=== PATIENT | female | born 1940 | race Caucasian/White ===

== ENCOUNTER 2018-04-04 10:15 | Inpatient (IN) | payer OTHER, MEDICARE ==
[~2018-04-04] VITALS: Ht 152.4 cm; Wt 70.0 kg
[~2018-04-04 10:15] MED LIST: ADVIN25050 INH; ALBUAER2 INH; ATV5 PO; CZR50 PO; EZET10TA41 PO; HYDC25 PO; METO100T44 PO; PRM625 PO; [UNRECOGNIZED DRUG - OTHER]
[2018-04-04] MEDS ORDERED: SODIUM CHLORIDE 0.9% 500ML 500 ML IV STA (10:46)
[2018-04-04] MEDS ORDERED: KETOROLAC TROMETHAMINE 30 MG/ML VIAL IV STA (10:46)
[2018-04-04] MEDS ORDERED: MoRPHine SULFATE 4 MG/ML 1 ML CARP\\VIAL IV STA (10:46)
[2018-04-04] MEDS ORDERED: AMT10 PO (11:20)
[2018-04-04] MEDS ORDERED: LOSA1TAB38 PO (11:20)
[2018-04-04] MEDS ORDERED: METO-479 PO (11:20)
[2018-04-04] MEDS ORDERED: ATOR10TA82 PO (11:20)
[2018-04-04] MEDS ORDERED: HYDR25TA4 PO (11:20)
[2018-04-04] MEDS ORDERED: ADVIN25/60 INH (11:20)
[2018-04-04] MEDS ORDERED: LORA-741 PO (11:20)
[2018-04-04] MEDS ORDERED: VNTHFA/IN INH (11:20)
[2018-04-04 11:28] LABS: BASO % 0.5 %; BASO ABS # 0.04 K/uL (0-0.2); EOS ABS # 0.47 K/uL (0-0.5); HEMATOCRIT 35.3 % (37-47); HEMOGLOBIN 11.8 g/dL (12.0-16.0); IG# 0.02 K/uL (0.00-0.02); LYMPH % 29.1 %; LYMPH ABS # 2.29 K/uL (1.2-3.4); MEAN CELL VOLUME 93.9 fL (80-100); MEAN CORPUSCULAR HEMOGLOBIN 31.4 pg (25-34); MEAN CORPUSCULAR HGB CONC 33.4 g/dl (32-36); MEAN PLATELET VOLUME 9.3 fL (7.4-10.4); MONO % 12.1 %; MONO ABS # 0.95 K/uL (0.11-0.59); PLATELET COUNT 248 K/uL (130-400); RED CELL DISTRIBUTION WIDTH SD 48.1 fL (36.4-46.3); WHITE BLOOD COUNT 7.87 K/uL (4.8-10.8)
[2018-04-04 11:44] LABS: CALCIUM 9.7 mg/dl (8.5-10.1); CREATININE 1.09 mg/dl (0.60-1.20); POTASSIUM 3.6 mmol/L (3.5-5.1)
--- NOTE | 2018-04-04 11:46 | DIAGNOSTIC IMAGING REPORT ---
CT LUMBAR SPINE WITHOUT CT DOSE: 579.17 mGycm CLINICAL HISTORY: Severe low back pain TECHNIQUE: Helical images were acquired in transverse plane. Reformatted sagittal and coronal images were reviewed. A dose lowering technique was utilized adhering to the principles of ALARA. CONTRAST: No contrast was administered COMPARISON STUDY: Intraoperative fluoroscopic spot images performed August 2008 FINDINGS: At the inferior T12 level, there are large partially calcified anterior extradural masses measuring 11 mm on the right and 21 mm on the left. The left mass extends into the neural foramen. There is significant secondary spinal stenosis. Diagnostic considerations include partially calcified extruded disc herniations versus calcified meningiomas or neurogenic tumors. An MRI without and with contrast is recommended in follow-up. L1-2 level: There is a 1-2 fusion. No significant disc is visualized. There is no herniation. There is no spinal or foraminal stenosis. L2-3 level: There is L2-3 fusion with no significant disc. There is no significant spinal or foraminal stenosis. L3-4 level: There are marked degenerative changes. There is moderate spinal stenosis. There is facet joint fragmentation. There is bilateral foraminal narrowing. L4-5 level: There is marked disc degeneration. There is moderate spinal stenosis. There is facet joint fragmentation. There is bilateral foraminal narrowing. L5-S1 level: There are postsurgical changes of a discectomy and interbody fusion. Postlaminectomy changes. There is no significant spinal or foraminal stenosis. There is a suspected prior left nephrectomy. IMPRESSION: 1. 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 There is extension into the left neural foramina. There is significant secondary spinal stenosis. Diagnostic considerations include partially calcified extruded disc herniations versus calcified meningiomas or neurogenic tumors. An MRI without and with contrast is recommended in follow-up. 2. Moderate spinal stenosis and bilateral foraminal narrowing at the L3-4, and L4-5 levels. 3. Postsurgical changes at the L5-S1 level with posterior spinal fusion and pedicle screw fixation Electronically signed by: Kervin Deshpande M.D. 04/04/2018 11:45 AM Dictated Date/Time: 04/04/2018 11:36 AM
[2018-04-04 12:50] VITALS: O2SAT 98; Ht 152.4 cm; Wt 70.0 kg
[2018-04-04] MEDS ORDERED: GADAVIST IV PRN (13:45)
--- NOTE | 2018-04-04 14:09 | History and Physical ---
History & Physical Date & Time of Service: Apr 04, 2018 at 14:09 Chief Complaint: Back Pain Primary Care Physician: Atif Molina D.O. History of Present Illness Source: patient 77 y/o F c/o back pain. Pt states she fell in December when she had PNA. Since that time, she has had worsening LBP. She was initially only somewhat limited, however this has progressed to pain with all mobility and with lying or sitting. Pt had prior hx of LBP and is s/p lumbar fusion in 2007. Since her recovery from surgery, she had not had much pain until after this fall. Pain is now radiating to front of her thighs b/l. She saw her PCP and was given flexaril which did help some but did not fully relieve the pain. No loss of bowel/bladder continence. She has had a good appetite and no issues with PO. "I' m eating too much!". Pt is limited in mobility due to back pain, but states no SOB or chest pain issues with stairs or other ambulation at baseline. Pt denies fever, SOB, chest pain, abd pain, n/v/c/d, LE swelling. Past Medical/Surgical History HTN Anxiety Asthmatic bronchitis Hyperlipidemia Family History Family history was reviewed; no changes noted. Mother: [place] Father: Metastatic esophageal cancer Social History Smoking Status: Former Smoker (quit at least 20 yrs ago) Alcohol Use: none Drug Use: none Immunizations History of Influenza Vaccine: Yes Influenza Vaccine Date: Jul 23, 2008 History of Tetanus Vaccine?: Yes Tetanus Immunization Date: May 23, 2005 History of Pneumococcal: Yes Pneumococcal Date: Sep 22, 2003 History of Hepatitis B Vaccine: No Allergies Coded Allergies: Codeine (Verified Allergy, Mild, RASH, 04/04/18) Penicillins (Verified Allergy, Mild, RASH, 04/04/18) Sulfa Antibiotics (Verified Allergy, Unknown, RASH, 04/04/18) Home Medications Scheduled Amitriptyline HCl (Amitriptyline HCl), 10 MG PO HS Atorvastatin (Lipitor), 10 MG PO DAILY Fluticasone Prop/Salmeterol (Advair Diskus 250/50 60 Dose), 1 PUFF INH BID Hydrochlorothiazide (Hctz), 25 MG PO DAILY Lorazepam (Ativan), 0.5 MG PO TID Losartan Potassium (Cozaar), 100 MG PO DAILY Metoprolol Succinate (Toprol Xl), 100 MG PO DAILY Scheduled PRN Albuterol Hfa (Ventolin Hfa), 2 PUFFS INH Q4H PRN for SOB/Wheezing Review of Systems Pertinent positives and negatives reviewed in HPI--all others negative Physical Exam Vital Signs Date Time Temp Pulse Resp B/P (MAP) Pulse Ox O2 Delivery O2 Flow Rate FiO2 04/04/18 14:02 88 18 167/77 98 Room Air 04/04/18 13:00 88 18 176/78 98 Room Air 04/04/18 12:50 98 Room Air 04/04/18 10:31 36.6 83 18 147/71 98 Room Air General Appearance: WD/WN, no apparent distress Head: normocephalic, atraumatic Eyes: normal inspection, sclerae normal Respiratory/Chest: normal breath sounds, no respiratory distress Cardiovascular: regular rate, rhythm, no edema Abdomen/GI: non tender, soft Extremities/Musculoskelatal: no calf tenderness, no pedal edema Neurologic/Psych: alert, normal mood/affect, oriented x 3 Skin: normal color, warm/dry Diagnostics Laboratory Results Results Past 24 Hours Test 04/04/18 10:45 Range/Units White Blood Count 7.87 4.8-10.8 K/uL Red Blood Count 3.76 4.2-5.4 M/uL Hemoglobin 11.8 12.0-16.0 g/dL Hematocrit 35.3 37-47 % Mean Corpuscular Volume 93.9 80-100 fL Mean Corpuscular Hemoglobin 31.4 25-34 pg Mean Corpuscular Hemoglobin Concent 33.4 32-36 g/dl Platelet Count 248 130-400 K/uL Mean Platelet Volume 9.3 7.4-10.4 fL Neutrophils (%) (Auto) 52.0 % Lymphocytes (%) (Auto) 29.1 % Monocytes (%) (Auto) 12.1 % Eosinophils (%) (Auto) 6.0 % Basophils (%) (Auto) 0.5 % Neutrophils # (Auto) 4.10 1.4-6.5 K/uL Lymphocytes # (Auto) 2.29 1.2-3.4 K/uL Monocytes # (Auto) 0.95 0.11-0.59 K/uL Eosinophils # (Auto) 0.47 0-0.5 K/uL Basophils # (Auto) 0.04 0-0.2 K/uL RDW Standard Deviation 48.1 36.4-46.3 fL RDW Coefficient of Variation 14.0 11.5-14.5 % Immature Granulocyte % (Auto) 0.3 % Immature Granulocyte # (Auto) 0.02 0.00-0.02 K/uL Sodium Level 135 136-145 mmol/L Potassium Level 3.6 3.5-5.1 mmol/L Chloride Level 98 98-107 mmol/L Carbon Dioxide Level 31 21-32 mmol/L Anion Gap 6.0 3-11 mmol/L Blood Urea Nitrogen 23 7-18 mg/dl Creatinine 1.09 0.60-1.20 mg/dl Est Creatinine Clear Calc Drug Dose 36.5 ml/min Estimated GFR () 55.9 Estimated GFR (Non- 48.2 BUN/Creatinine Ratio 21.4 10-20 Random Glucose 88 70-99 mg/dl Calcium Level 9.7 8.5-10.1 mg/dl Diagnostic Radiology CT L-spine: 1. 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 There is extension into the left neural foramina. There is significant secondary spinal stenosis. Diagnostic considerations include partially calcified extruded disc herniations versus calcified meningiomas or neurogenic tumors. An MRI without and with contrast is recommended in follow-up. 2. Moderate spinal stenosis and bilateral foraminal narrowing at the L3-4, and L4-5 levels. 3. Postsurgical changes at the L5-S1 level with posterior spinal fusion and pedicle screw fixation MRI L-spine: 1. Large calcified lobular extramedullary extradural mass of the anterior epidural space posterior to T12 vertebral body and T12-L1 disc space redemonstrated without appreciable enhancement extending extending into the left neuroforamen measuring up to 2.4 cm. This lesion causes severe central canal, severe left lateral recess and severe bilateral foraminal narrowing. Again, differential considerations would include calcified meningioma or calcified disc fragment with calcified nerve sheath tumor thought to be less likely. 2. Discectomy with laminectomy and posterior interbody edward and screw fusion at L5-S1. Alignment is satisfactory. 3. Advanced multilevel intervertebral disc space narrowing with disc bulging and facet arthropathy as detailed above. Impression Assessment and Plan 77 y/o F who was admitted on 04/04 with back pain Back pain: Calcified mass noted at T12 on CT and MRI Ortho c/s pending EKG pending HTN: stable, continue home meds Anxiety: stable, continue home meds Notes ativan use in 1-2x/day PRN Hyperlipidemia: continue home meds Asthmatic bronchitis: continue home meds Other: Full code without compressions. Pt states she is fine with defib or intubation if needed. Does not want prolonged mechanical life support. Sister is present and agrees Reg diet SCDs for DVT proph given likely OR Advanced Directives Existing Living Will: Yes Existing Power of Nut Blanker Operator: Yes Resuscitation Status VTE Prophylaxis Will order VTE Prophylaxis: Yes
--- NOTE | 2018-04-04 14:14 | DIAGNOSTIC IMAGING REPORT ---
LUMBAR SPINE COMBINATION CLINICAL HISTORY: 77 years-old Female with mass seen on CT . Acute severe low back pain COMPARISON: Calcified mass of the anterolateral space at T12 noted on CT study of same day. TECHNIQUE: Multiplanar, multi sequence MRI of the lumbar spine was performed both with and without the use of 7 mL Gadavist FINDINGS: The home visitor home base head start localizer images demonstrate no gross abnormality. Motion degraded exam. Postoperative changes from discectomy with laminectomy and posterior interbody edward and screw fusion at L5-S1. Severe multilevel intervertebral disc space narrowing with spondylitic spurring and facet arthrosis. Heterogeneous appearance of the bone marrow. Modic type II endplate degenerative changes at L2-L3. Modic type III endplate changes at T12-L1. Nonspecific subcutaneous edema about the posterior paraspinal tissues. No aortic aneurysm. No pathologically enlarged lymph nodes identified. Multilevel intervertebral disc space narrowing with annular disc bulging and facet arthropathy about the lower thoracic spine. Mild central canal stenosis at T10-T11 with mild right foraminal narrowing. T12-L1: Severe intervertebral disc space narrowing with spondylitic spurring and circumferential annular disc bulge. Mass of the anterior lateral space posterior to the T12 vertebral body and T12-L1 disc space demonstrates markedly decreased T2 signal with decreased T1 signal and is circumscribed and lobular in morphology measuring 1.3 x 2.0 x 2.4 cm in AP, transverse and cranial caudal dimension extending into the left neuroforamen causing neuroforaminal remodeling/widening. No appreciable enhancement on the postcontrast images. Central canal is narrowed to 5 mm in AP dimension resulting in severe central canal, severe left lateral recess and severe left foraminal narrowing. Moderate right foraminal narrowing. L1-L2: Severe intervertebral disc space narrowing with spondylitic spurring and circumferential annular disc bulge with ligamentum flavum thickening and moderate facet arthrosis. Flattening of the ventral thecal sac without significant central canal stenosis. There is mild left foraminal narrowing. The right foramen is patent. L2-L3: Severe intervertebral disc space narrowing with spondylitic spurring and circumferential annular disc bulge with advanced facet arthrosis and ligamentum flavum thickening. Flattening of the ventral thecal sac without significant foraminal stenosis. Mild right and mild to moderate left foraminal narrowing. L3-L4: Severe intervertebral disc space narrowing with millimeters retrolisthesis L3 on L4. Circumferential annular disc bulge with spondylitic spurring and advanced facet arthrosis. These findings cause moderate central canal and severe bilateral foraminal stenosis. L4-L5: Severe decubitus space narrowing with circumferential disc osteophyte complex and advanced facet arthropathy. There is moderate central canal, and severe bilateral foraminal stenosis. L5-S1: Fusion at this level. No central canal or foraminal narrowing. IMPRESSION: 1. Large calcified lobular extramedullary extradural mass of the anterior epidural space posterior to T12 vertebral body and T12-L1 disc space redemonstrated without appreciable enhancement extending extending into the left neuroforamen measuring up to 2.4 cm. This lesion causes severe central canal, severe left lateral recess and severe bilateral foraminal narrowing. Again, differential considerations would include calcified meningioma or calcified disc fragment with calcified nerve sheath tumor thought to be less likely. 2. Discectomy with laminectomy and posterior interbody edward and screw fusion at L5-S1. Alignment is satisfactory. 3. Advanced multilevel intervertebral disc space narrowing with disc bulging and facet arthropathy as detailed above. The above report was generated using voice recognition software. It may contain grammatical, syntax or spelling errors. Electronically signed by: Nikhil Chacon M.D. 04/04/2018 2:13 PM Dictated Date/Time: 04/04/2018 1:57 PM
[2018-04-04] MEDS ORDERED: ALBUTEROL HFA 8 GM INHALER INH PRN (14:30)
[2018-04-04] MEDS ORDERED: ACETAMINOPHEN 325 MG TAB PO PRN (14:30)
[2018-04-04] MEDS ORDERED: ONDANSETRON INJ 2 MG/ML 2 ML VIAL IV PRN (14:30)
[2018-04-04] MEDS ORDERED: MAGNESIUM HYDROXIDE SUSP 30 ML UDC PO PRN (14:30)
--- NOTE | 2018-04-04 16:11 | EMERGENCY ROOM VISIT NOTE ---
History Report prepared by Jhonathan: Naomie Martino Under the Supervision of: Dr. Nazario Mak D.O. First contact with patient: 10:40 Chief Complaint: BACK PAIN Stated Complaint: BACK PAIN History of Present Illness The patient is a 77 year old female who presents to the Emergency Room with complaints of worsening lower back pain starting 2 weeks ago. The patient states that she has a history of back surgery and had a cage placed by Dr. Mays 10 years ago. She states that she fell 3 months ago and believes that it exacerbated the pain. The patient currently rates her pain as a 10/10 in severity and notes that the pain is worse with movement. She reports that she saw her PCP, Dr. Rodriguez, who gave her Flexeril to take 2 times a day. She states that it has been helping, but didn't help this morning so decided to come. The patient complains of pain down both her legs, but notes that her right leg is worse than her left. The patient denies urinary symptoms, weakness in legs, numbness in legs, and abnormal bowel movements. Source of History: patient Onset: 2 weeks ago Position: back (lower) Symptom Intensity: 10/10 Timing: worsening Modifying Factors (Worsening): movement Modifying Factors (Relieving): other (Flexeril) Associated Symptoms: No urinary symptoms, No weakness, No numbness Note: The patient complains of bilateral leg pain. The patient denies abnormal bowel movements. Review of Systems See HPI for pertinent positives & negatives. A total of 10 systems reviewed and were otherwise negative. Past Medical & Surgical Medical Problems: (1) Abnormal MRI, thoracic spine Surgical Problems: (1) History of back surgery Family History No significant family history Social History Smoking Status: Former Smoker Marital Status: single Housing Status: lives with friends Occupation Status: retired Current/Historical Medications Scheduled Amitriptyline HCl (Amitriptyline HCl), 10 MG PO HS Atorvastatin (Lipitor), 10 MG PO DAILY Fluticasone Prop/Salmeterol (Advair Diskus 250/50 60 Dose), 1 PUFF INH BID Hydrochlorothiazide (Hctz), 25 MG PO DAILY Lorazepam (Ativan), 0.5 MG PO TID Losartan Potassium (Cozaar), 100 MG PO DAILY Metoprolol Succinate (Toprol Xl), 100 MG PO DAILY Scheduled PRN Albuterol Hfa (Ventolin Hfa), 2 PUFFS INH Q4H PRN for SOB/Wheezing Allergies Coded Allergies: Codeine (Verified Allergy, Mild, RASH, 04/04/18) Penicillins (Verified Allergy, Mild, RASH, 04/04/18) Sulfa Drugs (Verified Allergy, Mild, RASH, 04/04/18) Physical Exam Vital Signs Date Time Temp Pulse Resp B/P (MAP) Pulse Ox O2 Delivery O2 Flow Rate FiO2 04/04/18 16:03 83 18 161/71 98 Room Air 04/04/18 14:02 88 18 167/77 98 Room Air 04/04/18 13:00 88 18 176/78 98 Room Air 04/04/18 12:50 98 Room Air 04/04/18 10:31 36.6 83 18 147/71 98 Room Air Physical Exam GENERAL: Sitting up in bed, holding lower back, moderate distress EYE EXAM: normal conjunctiva. OROPHARYNX: no exudate, no erythema, lips, buccal mucosa, and tongue normal and mucous membranes are moist NECK: supple, no nuchal rigidity, no adenopathy, non-tender LUNGS: Clear to auscultation. Normal chest wall mechanics HEART: no murmurs, S1 normal and S2 normal ABDOMEN: abdomen soft, non-tender, normo-active bowel sounds, no masses, no rebound or guarding. BACK: Back is symmetrical on inspection and there is no deformity, no CVA tenderness. Old lower lumbar incision with pain tracking through right gluteus and legs. SKIN: no rashes and no bruising UPPER EXTREMITIES: upper extremities are grossly normal. LOWER EXTREMITIES: No pitting edema. Flexion and extension of the hips, knees, ankles, and EHL 5/5 bilaterally. Gross sensation is intact. DPs are 2/4 bilateral. Patellar and Achilles reflexes are 2/4 bilateral NEURO EXAM: Normal sensorium, cranial nerves II-XII grossly intact, normal speech, no gross weakness of arms, no gross weakness of legs. Medical Decision & Procedures ER Provider Diagnostic Interpretation: Radiology results as stated below per my review and the radiologist's interpretation: CT LUMBAR SPINE WITHOUT CT DOSE: 579.17 mGycm CLINICAL HISTORY: Severe low back pain TECHNIQUE: Helical images were acquired in transverse plane. Reformatted sagittal and coronal images were reviewed. A dose lowering technique was utilized adhering to the principles of ALARA. CONTRAST: No contrast was administered COMPARISON STUDY: Intraoperative fluoroscopic spot images performed August 2008 FINDINGS: At the inferior T12 level, there are large partially calcified anterior extradural masses measuring 11 mm on the right and 21 mm on the left. The left mass extends into the neural foramen. There is significant secondary spinal stenosis. Diagnostic considerations include partially calcified extruded disc herniations versus calcified meningiomas or neurogenic tumors. An MRI without and with contrast is recommended in follow-up. L1-2 level: There is a 1-2 fusion. No significant disc is visualized. There is no herniation. There is no spinal or foraminal stenosis. L2-3 level: There is L2-3 fusion with no significant disc. There is no significant spinal or foraminal stenosis. L3-4 level: There are marked degenerative changes. There is moderate spinal stenosis. There is facet joint fragmentation. There is bilateral foraminal narrowing. L4-5 level: There is marked disc degeneration. There is moderate spinal stenosis. There is facet joint fragmentation. There is bilateral foraminal narrowing. L5-S1 level: There are postsurgical changes of a discectomy and interbody fusion. Postlaminectomy changes. There is no significant spinal or foraminal stenosis. There is a suspected prior left nephrectomy. IMPRESSION: 1. 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 There is extension into the left neural foramina. There is significant secondary spinal stenosis. Diagnostic considerations include partially calcified extruded disc herniations versus calcified meningiomas or neurogenic tumors. An MRI without and with contrast is recommended in follow-up. 2. Moderate spinal stenosis and bilateral foraminal narrowing at the L3-4, and L4-5 levels. 3. Postsurgical changes at the L5-S1 level with posterior spinal fusion and pedicle screw fixation Electronically signed by: Kervin Deshpande M.D. 04/04/2018 11:45 AM Dictated Date/Time: 04/04/2018 11:36 AM LUMBAR SPINE COMBINATION CLINICAL HISTORY: 77 years-old Female with mass seen on CT . Acute severe low back pain COMPARISON: Calcified mass of the anterolateral space at T12 noted on CT study of same day. TECHNIQUE: Multiplanar, multi sequence MRI of the lumbar spine was performed both with and without the use of 7 mL Gadavist FINDINGS: The athletic scout localizer images demonstrate no gross abnormality. Motion degraded exam. Postoperative changes from discectomy with laminectomy and posterior interbody edward and screw fusion at L5-S1. Severe multilevel intervertebral disc space narrowing with spondylitic spurring and facet arthrosis. Heterogeneous appearance of the bone marrow. Modic type II endplate degenerative changes at L2-L3. Modic type III endplate changes at T12-L1. Nonspecific subcutaneous edema about the posterior paraspinal tissues. No aortic aneurysm. No pathologically enlarged lymph nodes identified. Multilevel intervertebral disc space narrowing with annular disc bulging and facet arthropathy about the lower thoracic spine. Mild central canal stenosis at T10-T11 with mild right foraminal narrowing. T12-L1: Severe intervertebral disc space narrowing with spondylitic spurring and circumferential annular disc bulge. Mass of the anterior lateral space posterior to the T12 vertebral body and T12-L1 disc space demonstrates markedly decreased T2 signal with decreased T1 signal and is circumscribed and lobular in morphology measuring 1.3 x 2.0 x 2.4 cm in AP, transverse and cranial caudal dimension extending into the left neuroforamen causing neuroforaminal remodeling/widening. No appreciable enhancement on the postcontrast images. Central canal is narrowed to 5 mm in AP dimension resulting in severe central canal, severe left lateral recess and severe left foraminal narrowing. Moderate right foraminal narrowing. L1-L2: Severe intervertebral disc space narrowing with spondylitic spurring and circumferential annular disc bulge with ligamentum flavum thickening and moderate facet arthrosis. Flattening of the ventral thecal sac without significant central canal stenosis. There is mild left foraminal narrowing. The right foramen is patent. L2-L3: Severe intervertebral disc space narrowing with spondylitic spurring and circumferential annular disc bulge with advanced facet arthrosis and ligamentum flavum thickening. Flattening of the ventral thecal sac without significant foraminal stenosis. Mild right and mild to moderate left foraminal narrowing. L3-L4: Severe intervertebral disc space narrowing with millimeters retrolisthesis L3 on L4. Circumferential annular disc bulge with spondylitic spurring and advanced facet arthrosis. These findings cause moderate central canal and severe bilateral foraminal stenosis. L4-L5: Severe decubitus space narrowing with circumferential disc osteophyte complex and advanced facet arthropathy. There is moderate central canal, and severe bilateral foraminal stenosis. L5-S1: Fusion at this level. No central canal or foraminal narrowing. IMPRESSION: 1. Large calcified lobular extramedullary extradural mass of the anterior epidural space posterior to T12 vertebral body and T12-L1 disc space redemonstrated without appreciable enhancement extending extending into the left neuroforamen measuring up to 2.4 cm. This lesion causes severe central canal, severe left lateral recess and severe bilateral foraminal narrowing. Again, differential considerations would include calcified meningioma or calcified disc fragment with calcified nerve sheath tumor thought to be less likely. 2. Discectomy with laminectomy and posterior interbody edward and screw fusion at L5-S1. Alignment is satisfactory. 3. Advanced multilevel intervertebral disc space narrowing with disc bulging and facet arthropathy as detailed above. The above report was generated using voice recognition software. It may contain grammatical, syntax or spelling errors. Electronically signed by: Nikhil Chacon M.D. 04/04/2018 2:13 PM Dictated Date/Time: 04/04/2018 1:57 PM Laboratory Results 04/04/18 10:45 Red Blood Count 3.76, Mean Corpuscular Volume 93.9, Mean Corpuscular Hemoglobin 31.4, Mean Corpuscular Hemoglobin Concent 33.4, Mean Platelet Volume 9.3, Neutrophils (%) (Auto) 52.0, Lymphocytes (%) (Auto) 29.1, Monocytes (%) (Auto) 12.1, Eosinophils (%) (Auto) 6.0, Basophils (%) (Auto) 0.5, Neutrophils # (Auto ) 4.10, Lymphocytes # (Auto) 2.29, Monocytes # (Auto) 0.95, Eosinophils # (Auto ) 0.47, Basophils # (Auto) 0.04 04/04/18 10:45 Test 04/04/18 10:45 White Blood Count 7.87 K/uL (4.8-10.8) Red Blood Count 3.76 M/uL (4.2-5.4) Hemoglobin 11.8 g/dL (12.0-16.0) Hematocrit 35.3 % (37-47) Mean Corpuscular Volume 93.9 fL (80-100) Mean Corpuscular Hemoglobin 31.4 pg (25-34) Mean Corpuscular Hemoglobin Concent 33.4 g/dl (32-36) Platelet Count 248 K/uL (130-400) Mean Platelet Volume 9.3 fL (7.4-10.4) Neutrophils (%) (Auto) 52.0 % Lymphocytes (%) (Auto) 29.1 % Monocytes (%) (Auto) 12.1 % Eosinophils (%) (Auto) 6.0 % Basophils (%) (Auto) 0.5 % Neutrophils # (Auto) 4.10 K/uL (1.4-6.5) Lymphocytes # (Auto) 2.29 K/uL (1.2-3.4) Monocytes # (Auto) 0.95 K/uL (0.11-0.59) Eosinophils # (Auto) 0.47 K/uL (0-0.5) Basophils # (Auto) 0.04 K/uL (0-0.2) RDW Standard Deviation 48.1 fL (36.4-46.3) RDW Coefficient of Variation 14.0 % (11.5-14.5) Immature Granulocyte % (Auto) 0.3 % Immature Granulocyte # (Auto) 0.02 K/uL (0.00-0.02) Anion Gap 6.0 mmol/L (3-11) Est Creatinine Clear Calc Drug Dose 36.5 ml/min Estimated GFR () 55.9 Estimated GFR (Non- 48.2 BUN/Creatinine Ratio 21.4 (10-20) Calcium Level 9.7 mg/dl (8.5-10.1) Laboratory results per my review. Medications Administered Medications (Trade) Dose Ordered Sig/Prema Route Start Time Stop Time Status Last Admin Dose Admin Sodium Chloride 500 ml @ 999 mls/hr Q31M STAT IV 04/04/18 10:46 04/04/18 11:16 DC 04/04/18 11:05 999 MLS/HR Morphine Sulfate (MoRPHine SULFATE INJ) 4 mg NOW STAT IV 04/04/18 10:46 04/04/18 10:48 DC 04/04/18 11:07 4 MG Ketorolac Tromethamine (Toradol Inj) 10 mg NOW STAT IV 04/04/18 10:46 04/04/18 10:48 DC 04/04/18 11:07 10 MG ED Course ED COURSE: Vital signs were reviewed and showed hypertension situationally. The patients medical record was reviewed The above diagnostic studies were performed and reviewed. ED treatments and interventions as stated above. 1041: The patient was evaluated in room C3. A complete history and physical examination was performed. 1046: Ordered Toradol Inj 10 mg IV, Morphine Sulfate 4 mg IV, NSS 500 ml @ 999 mls/hr IV. 1209: I discussed the patient's case with Dr. Berumen. He states that the patient should be admitted. 1220: Upon reevaluation, the patient is resting comfortably. I discussed my findings with the patient and she understands and agrees with the treatment plan. Based on the patients age, coexisting illnesses, exam and lab findings the decision to treat as an inpatient was made. The patient remained stable while under my care. The patient will be evaluated for further management. 1246: I reviewed the patient's case with Dr. Mary RASHEED Hospitalist. She will evaluate the patient for further management. Medical Decision Differential diagnoses includes but is not limited to lumbar radiculopathy, kidney stone, muscle strain, facture, cauda equina, mass, and disc herniation. Patient is a 77-year-old female who presents the ER for back pain which is been present for the past 2 weeks. She was operated on by Dr. Painter several years ago. Pain is a 10 out of 10 with any kind of movement. She is neurologically intact otherwise. CT lumbar spine shows a anterior epidural mass. This was discussed with Dr. Mays. He recommended MRI and admission to internal medicine. MRI was obtained. Patient and family were updated at bedside. They are given IV pain medications. Patient was admitted to internal medicine for further workup. CBC along with BMP was unremarkable. Medication Reconcilliation Current Medication List: was personally reviewed by me Blood Pressure Screening Patient's blood pressure: Elevated blood pressure Blood pressure disposition: Elevated BP felt to be situational Consults Time Called: 1201 Consulting Physician: Dr. Berumen Returned Call: 1209 I discussed the patient's case with Dr. Berumen. He states that the patient should be admitted. Additional Consults: Time Called: 1232 Consulted Physician: Dr. Mary RASHEED Hospitalist Returned Call: 1246 Additional Comments: I reviewed the patient's case with Dr. Mary RASHEED Hospitalist. She will evaluate the patient for further management. Impression Primary Impression: Mass of spinal cord Scribe Attestation The scribe's documentation has been prepared under my direction and personally reviewed by me in its entirety. I confirm that the note above accurately reflects all work, treatment, procedures, and medical decision making performed by me. Departure Information Dispostion Being Evaluated By Hospitalist Patient Instructions [facility]
[2018-04-04 16:22] VITALS: BP 156/81; PULSE 85; TEMP 36.6; O2SAT 95
[2018-04-04] MEDS ORDERED: MoRPHine SULFATE 4 MG/ML 1 ML CARP\\VIAL IV PRN (17:15)
[2018-04-04] MEDS ORDERED: MoRPHine SULFATE 2 MG/ML CARP IV PRN (17:15)
[2018-04-04] MEDS: KETOROLAC TROMETHAMINE 15 MG/ML VIAL IV. PRN (18:04)
[2018-04-04] MEDS: FLUTICASONE/SALMETEROL 250/50 (ADVAIR) 14 PUFF/1 INHALER INH SCH (20:27)
[2018-04-04] MEDS: AMITRIPTYLINE HCL 10 MG TAB PO SCH (20:28)
[2018-04-04] MEDS ORDERED: LORAZEPAM 0.5 MG TAB PO SCH (21:00)
[2018-04-04] MEDS ORDERED: LORAZEPAM 0.5 MG TAB PO PRN (21:00)
[2018-04-04 23:00] VITALS: BP 144/76; PULSE 83; TEMP 36.8; O2SAT 95
[2018-04-05] VITALS (10 sets, daily range): BP systolic 157–189; BP diastolic 72–111; PULSE 78–89; TEMP 36.5–37.1; O2SAT 3–99
[2018-04-05] MEDS: KETOROLAC TROMETHAMINE 15 MG/ML VIAL IV. PRN ×4 (01:41→22:23)
[2018-04-05 07:37] LABS: CALCIUM 9.2 mg/dl (8.5-10.1); CREATININE 1.31 mg/dl (0.60-1.20)
--- NOTE | 2018-04-05 07:43 | Orthopedic Consultation ---
Orthopedic Consultation Date of Consultation: Apr 05, 2018. Attending Physician: Sonny Mix MD Reason for Consultation: Back and bilateral leg pain History of Present Illness Very pleasant 77-year-old female well-known to me. She states since December she has had a steady decline in status. She notes severe thoracolumbar back pain radiating bilateral extremities. Is markedly limited her ability to stand and ambulate. She falls several times. She does live alone. She would came to the emergency room yesterday with a marked decline in status and pain. MRI was obtained demonstrating a massive disc herniation T12-L1 with cephalad migration. There is evidence severe cord compression and neural foraminal stenosis. This is entirely concordant with her symptom complex and complaints. Past Medical/Surgical History Medical Problems: (1) Mass of spinal cord Status: Acute Family History No significant family history Social History Smoking Status: Former Smoker Alcohol Use: none Drug Use: none Marital Status: single Housing Status: lives with friends Occupation Status: retired Allergies Coded Allergies: Codeine (Verified Allergy, Mild, RASH, 04/04/18) Penicillins (Verified Allergy, Mild, RASH, 04/04/18) Sulfa Antibiotics (Verified Allergy, Unknown, RASH, 04/04/18) Home Medications Scheduled Amitriptyline HCl (Amitriptyline HCl), 10 MG PO HS Atorvastatin (Lipitor), 10 MG PO DAILY Fluticasone Prop/Salmeterol (Advair Diskus 250/50 60 Dose), 1 PUFF INH BID Hydrochlorothiazide (Hctz), 25 MG PO DAILY Lorazepam (Ativan), 0.5 MG PO TID Losartan Potassium (Cozaar), 100 MG PO DAILY Metoprolol Succinate (Toprol Xl), 100 MG PO DAILY Scheduled PRN Albuterol Hfa (Ventolin Hfa), 2 PUFFS INH Q4H PRN for SOB/Wheezing Current Inpatient Medications Current Inpatient Medications Medications (Trade) Dose Ordered Sig/Prema Route Start Time Stop Time Status Last Admin Dose Admin Gadobutrol (Gadavist) 7 mmol UD PRN IV 04/04/18 13:45 04/08/18 13:44 Acetaminophen (Tylenol Tab) 650 mg Q4H PRN PO 04/04/18 14:30 05/04/18 14:29 Magnesium Hydroxide (Milk Of Magnesia Susp) 30 ml Q6H PRN PO 04/04/18 14:30 05/04/18 14:29 Ondansetron HCl (Zofran Inj) 4 mg Q6H PRN IV 04/04/18 14:30 05/04/18 14:29 Albuterol (Ventolin Hfa Inhaler) 2 puffs Q4H PRN INH 04/04/18 14:30 05/04/18 14:29 Amitriptyline HCl (Elavil Tab) 10 mg HS PO 04/04/18 21:00 05/04/18 20:59 04/04/18 20:28 10 MG Atorvastatin Calcium (Lipitor Tab) 10 mg DAILY PO 04/05/18 09:00 05/05/18 08:59 Salmeterol Xinafoate/ Fluticasone (Advair Diskus 250/50 Inh) 1 puff BID INH 04/04/18 21:00 05/04/18 20:59 04/04/18 20:27 1 PUFF Hydrochlorothiazide (Hydrochlorothiazide Tab) 25 mg DAILY PO 04/05/18 09:00 05/05/18 08:59 Losartan Potassium (coZAAR TAB) 100 mg DAILY PO 04/05/18 09:00 05/05/18 08:59 Metoprolol Succinate (Toprol Xl Tab) 100 mg DAILY PO 04/05/18 09:00 05/05/18 08:59 Lorazepam (Ativan Tab) 0.5 mg TID PRN PO 04/04/18 21:00 05/04/18 20:59 04/05/18 00:01 0.5 MG Ketorolac Tromethamine (Toradol Inj) 15 mg Q6H PRN IV. 04/04/18 17:15 04/09/18 17:14 04/05/18 01:41 15 MG Morphine Sulfate (MoRPHine SULFATE INJ) 2 mg Q4 PRN IV 04/04/18 17:15 04/18/18 17:14 Morphine Sulfate (MoRPHine SULFATE INJ) 4 mg Q4 PRN IV 04/04/18 17:15 04/18/18 17:14 Physical Exam Date Time Temp Pulse Resp B/P (MAP) Pulse Ox O2 Delivery O2 Flow Rate FiO2 04/04/18 23:50 Room Air 04/04/18 23:00 36.8 83 16 144/76 (98) 95 Room Air 04/04/18 16:30 36.6 85 16 156/81 95 04/04/18 16:30 Room Air 04/04/18 16:22 36.6 85 16 156/81 (106) 95 Room Air 04/04/18 16:03 83 18 161/71 98 Room Air 04/04/18 14:02 88 18 167/77 98 Room Air 04/04/18 13:00 88 18 176/78 98 Room Air 04/04/18 12:50 98 Room Air 04/04/18 10:31 36.6 83 18 147/71 98 Room Air On exam she is alert and oriented. She has full sensation light touch and cold bilateral extremities. She is reasonable 5 or 5 plantar flexion dorsiflexion is limited quadriceps and hip flexors bilaterally. She has marked tension signs with any leg raising. I did not have her stand and ambulate at this time secondary to pain. No abnormal skin markings. Laboratory Results Last 24 Hours Test 04/04/18 10:45 04/05/18 06:41 White Blood Count 7.87 K/uL Red Blood Count 3.76 M/uL Hemoglobin 11.8 g/dL Hematocrit 35.3 % Mean Corpuscular Volume 93.9 fL Mean Corpuscular Hemoglobin 31.4 pg Mean Corpuscular Hemoglobin Concent 33.4 g/dl Platelet Count 248 K/uL Mean Platelet Volume 9.3 fL Neutrophils (%) (Auto) 52.0 % Lymphocytes (%) (Auto) 29.1 % Monocytes (%) (Auto) 12.1 % Eosinophils (%) (Auto) 6.0 % Basophils (%) (Auto) 0.5 % Neutrophils # (Auto) 4.10 K/uL Lymphocytes # (Auto) 2.29 K/uL Monocytes # (Auto) 0.95 K/uL Eosinophils # (Auto) 0.47 K/uL Basophils # (Auto) 0.04 K/uL RDW Standard Deviation 48.1 fL RDW Coefficient of Variation 14.0 % Immature Granulocyte % (Auto) 0.3 % Immature Granulocyte # (Auto) 0.02 K/uL Sodium Level 135 mmol/L 135 mmol/L Potassium Level 3.6 mmol/L 4.0 mmol/L Chloride Level 98 mmol/L 102 mmol/L Carbon Dioxide Level 31 mmol/L 27 mmol/L Anion Gap 6.0 mmol/L 6.0 mmol/L Blood Urea Nitrogen 23 mg/dl 29 mg/dl Creatinine 1.09 mg/dl 1.31 mg/dl Est Creatinine Clear Calc Drug Dose 36.5 ml/min 30.4 ml/min Estimated GFR () 55.9 44.8 Estimated GFR (Non- 48.2 38.6 BUN/Creatinine Ratio 21.4 22.3 Random Glucose 88 mg/dl 86 mg/dl Calcium Level 9.7 mg/dl 9.2 mg/dl Assessment & Plan Assessment nucleus pulposus T12-L1 with severe canal compromise and stenosis. Plan at this time I discussed with this patient reviewing MRI findings and clinical presentation. Recommend urgent decompression possible fusion T12-L1. Risks benefits pros cons and alternatives were outlined in detail. Risks include but not limited to from anesthesia blindness stroke paralysis nerve damage blood loss current transfusion infection requiring reoperation benefits hopefully being marked improvement of her pain and leg weakness. Patient would like to proceed we will try to perform surgery this a.m.
[2018-04-05] MEDS ORDERED: NURSING VERBAL MED ORDER ONE ×2 (08:00→10:00)
[2018-04-05] MEDS: FLUTICASONE/SALMETEROL 250/50 (ADVAIR) 14 PUFF/1 INHALER INH SCH ×2 (08:14→20:36)
[2018-04-05] MEDS: METOPROLOL SUCC 50MG EXT REL TAB PO SCH (08:15)
[2018-04-05] MEDS: ATORVASTATIN 10 MG TAB PO SCH (08:15)
[2018-04-05] MEDS: LOSARTAN POTASSIUM 50 MG TAB PO SCH (08:16)
[2018-04-05] MEDS ORDERED: SODIUM CHLORIDE 0.9% 1000ML 1,000 ML IV SCH (08:45)
[2018-04-05] MEDS ORDERED: LABETALOL HCL IV 5 MG/ML 20ML IV PRN (09:00)
[2018-04-05] MEDS ORDERED: ATROPINE SULFATE 0.1 MG/ML 5ML SYR IV PRN (09:00)
[2018-04-05] MEDS ORDERED: ONDANSETRON INJ 2 MG/ML 2 ML VIAL IV PRN (09:00)
[2018-04-05] MEDS ORDERED: MEPERIDINE HCL 25 MG/ML CARP IV PRN (09:00)
[2018-04-05] MEDS ORDERED: HYDROCHLOROTHIAZIDE 25 MG TAB PO SCH (09:00)
[2018-04-05] MEDS ORDERED: EpHEDrine SULFATE INJ 50 MG/ML AMP IV PRN (09:00)
[2018-04-05] MEDS ORDERED: HYDROmorphone INJ 1 MG/ML SYR IV PRN (09:00)
[2018-04-05] MEDS ORDERED: CEFAZOLIN SOD 1000MG/7.5 ML IV PUSH ONE (10:04)
[2018-04-05] MEDS ORDERED: BACITRACIN 50000 UNIT VIAL ONE (10:28)
[2018-04-05] MEDS ORDERED: BUPIVACAINE/EPINEPHRINE 0.5% MPF 1:200,000 30 ML VIAL ONE (10:28)
[2018-04-05] MEDS ORDERED: MIDAZOLAM HCL 1 MG/ML 2ML VIAL ONE (10:33)
[2018-04-05] MEDS ORDERED: FENTANYL CITRATE INJ 50 MCG/1 ML 2 ML VIAL ONE ×2 (10:33)
[2018-04-05] MEDS ORDERED: GLYCOPYRROLATE INJ 0.2 MG/ML VIAL ONE (11:52)
[2018-04-05] MEDS ORDERED: ONDANSETRON INJ 2 MG/ML 2 ML VIAL ONE (11:52)
[2018-04-05] MEDS ORDERED: NEOSTIGMINE METHYLSULFATE 1 MG/ML 10ML VIAL ONE (11:52)
[2018-04-05] MEDS ORDERED: ROCURONIUM BROMIDE 10 MG/ML 5 ML VIAL ONE (11:52)
[2018-04-05] MEDS ORDERED: PROPOFOL IV EMULSION 10 MG/ML 20 ML VIAL ONE (11:52)
[2018-04-05] MEDS ORDERED: LIDOCAINE HCL 2% 2 ML VIAL (20MG/ML) ONE (11:52)
[2018-04-05] MEDS ORDERED: DEXAMETHASONE SOD INJ 4 MG/ML VIAL ONE (11:52)
[2018-04-05] MEDS ORDERED: DURASEAL DURAL SEALANT 5ML TOP ONE (12:26)
[2018-04-05] MEDS ORDERED: FLOSEAL HEMOSTATIC MATRIX 10ML TOP ONE (12:26)
--- NOTE | 2018-04-05 12:40 | [facility] Operative Report ---
Operative Report Operative Date Apr 05, 2018. Pre-Operative Diagnosis Severe spinal stenosis T12-L1 with massive herniated nucleus pulposus Post-Operative Diagnosis Same Procedure(s) Performed 1. Lumbar decompression medial facetectomies T11-T12 T12-L1 with facetectomy T12-L1 on the left. 2 posterior spinal fusion T12-L1. #3 placement posterior instrumentation T12-L1. #4 interbody fusion T12-L1. #5 placed a peek cage 7 mm in height at T12-L1. #6 placement of local autograft in the posterior gutters per #7 placement InFUSE collagen sponge Bymaster graft the posterior lateral gutters and ostial amp in the interbody space. Surgeon Cable Layer Surgeon(s) GINA Vargas Estimated Blood Loss 100 Findings Herniated nucleus pulposus T12-L1 with cephalad migration Specimens None Anesthesia Type General Description of Procedure Patient was met with preoperatively case discussed all questions addressed. After informed consent obtained patient was taken to the operative suite underwent intubation placed in prone position injection table tablets frame. All bony prominences well-padded eyes inspected to ensure no external pressure placed upon. This point the thoracolumbar spine was prepped and draped in a sterile fashion. Sharp dissection with the assistance of Bovie cautery was performed down to and exposing the lamina and transverse processes T12 and L1. Then performed complete laminectomy of T12 partial laminectomy of T8 11. At this included bilateral medial facetectomies and a complete facetectomy of T12- L1 left to expose massive disc herniation migrating out through the entire foramen on the left. There was complete adhesion to the dura and root in this area. An incidental durotomy was noted. Pressure was such was almost complete obliteration of the exiting T12 nerve root on the left. After this compartment performed a partial discectomy on the left through the transforaminal approach allowing me to access the medial components of the fragments from beneath the herniation. I then placed pedicle screws in T12-L1 bilaterally with the assistance of fluoroscopy and the purposes edward placed. Through a transforaminal approach and left I did place a 7 mm peek cage filled with ostium bone graft to fill the significant void. The rods were then compressed locked in final position bilaterally. The transverse processes of T12 and L1 burred to subcortical bleeding bone. Infuse collagen sponge master graft local autograft placed posterior gutters. DuraSeal was placed over the durotomy site. No leakage was noted. A 15 round LINH drain inserted. Incision was then closed with 1 Vicryl fascia 2-0 Vicryl subtends in 4 Monocryl fashion closure Steri-Strips sterile dressing placed. Patient will continue PACU stable condition. Please note Geovanna Ríos present throughout the entire procedure involved the patient positioning complex portions of the surgery and fashion closure. I attest to the content of the Intraoperative Record and any orders documented therein. Any exceptions are noted below.
[2018-04-05] MEDS ORDERED: METOCLOPRAMIDE HCL INJ 5 MG/ML 2 ML VIAL IV PRN (12:45)
[2018-04-05] MEDS ORDERED: MAGNESIUM HYDROXIDE SUSP 30 ML UDC PO PRN (12:45)
[2018-04-05] MEDS ORDERED: LORAZEPAM 0.5 MG TAB PO PRN (12:45)
[2018-04-05] MEDS ORDERED: DO NOT ADMINISTER FLU VACCINE PRN (12:45)
[2018-04-05] MEDS ORDERED: ALUMINUM/MAGNESIUM SUSP 30 ML UDC PO PRN (12:45)
[2018-04-05] MEDS ORDERED: FAMOTIDINE 20 MG TAB PO PRN (12:45)
[2018-04-05] MEDS ORDERED: LORAZEPAM INJ 0.5 MG in SYRINGE 0 ML IV PRN (12:45)
[2018-04-05] MEDS ORDERED: ACETAMINOPHEN IV 100 ML IV PRN (12:45)
[2018-04-05] MEDS ORDERED: CEFAZOLIN IV 1,000 MG in DEXTROSE 5% 50ML 50 ML IV SCH (12:45)
[2018-04-05] MEDS ORDERED: SOD PHOSPHATE/SOD BIPHOSPHATE ENEMA 132 ML BTL PR PRN (12:45)
[2018-04-05] MEDS ORDERED: BISACODYL 10 MG SUPP PR PRN (12:45)
[2018-04-05] MEDS ORDERED: hydrOXYzine HCL 25 MG TAB PO PRN (12:45)
[2018-04-05] MEDS ORDERED: DO NOT ADMINISTER PNEUMOCOCCAL VACCINE PRN (12:45)
[2018-04-05] MEDS ORDERED: NALOXONE HCL 0.4 MG/1 ML VIAL/CARP IV PRN (12:45)
[2018-04-05] MEDS ORDERED: HYDROmorphone INJ 0.5 MG/0.5 ML SYR IV PRN (13:00)
[2018-04-05] MEDS: SODIUM CHLORIDE 0.9% 1000ML 1,000 ML IV SCH ×2 (13:00→19:26)
--- NOTE | 2018-04-05 13:21 | DIAGNOSTIC IMAGING REPORT ---
LUMBAR SPINE 2 OR 3 VIEW CLINICAL HISTORY: T12-L1 DECOMPRESSION/FUSION fusion TECHNIQUE: Image intensifier. 22 seconds fluoroscopic time. 3 images acquired. COMPARISON STUDY: None FINDINGS: Intraoperative images utilized for a T12-L1 laminectomy/fusion IMPRESSION: Intraoperative images utilized for a T12-L1 laminectomy/fusion. The above report was generated using voice recognition software. It may contain grammatical, syntax or spelling errors. Electronically signed by: Sekou Ferrell M.D. 04/05/2018 1:20 PM Dictated Date/Time: 04/05/2018 1:13 PM
[2018-04-05] MEDS: FENTANYL CITRATE INJ 50 MCG/1 ML 2 ML VIAL IV PRN ×3 (13:22→13:39)
--- NOTE | 2018-04-05 14:27 | Anesthesiology Progress Note ---
Anesthesia Post Op Note Date & Time Apr 05, 2018 at 14:27 Vital Signs Pain Intensity: 4 Vital Signs Past 12 Hours Date Time Temp Pulse Resp B/P (MAP) Pulse Ox O2 Delivery O2 Flow Rate FiO2 04/05/18 14:19 83 15 93 04/05/18 14:19 84 15 04/05/18 14:16 171/93 04/05/18 14:14 82 20 94 04/05/18 14:14 83 20 04/05/18 14:12 172/78 04/05/18 14:09 83 14 95 04/05/18 14:09 87 14 04/05/18 14:06 177/83 04/05/18 14:04 82 15 95 04/05/18 14:04 82 15 04/05/18 14:02 175/83 04/05/18 13:59 82 14 04/05/18 13:59 82 14 95 04/05/18 13:58 81 17 96 04/05/18 13:58 81 17 04/05/18 13:57 139/80 04/05/18 13:53 36.4 81 18 139/80 (86) 95 Nasal Cannula 2 04/05/18 13:53 81 13 04/05/18 13:53 82 13 96 04/05/18 13:51 158/120 04/05/18 13:48 81 20 94 04/05/18 13:48 81 20 04/05/18 13:47 142/81 04/05/18 13:45 82 22 91 04/05/18 13:45 81 22 04/05/18 13:41 175/77 04/05/18 13:40 81 18 04/05/18 13:40 81 18 97 04/05/18 13:36 158/88 04/05/18 13:35 82 13 97 04/05/18 13:35 81 13 04/05/18 13:34 82 13 97 04/05/18 13:34 82 13 04/05/18 13:31 164/76 04/05/18 13:30 81 14 164/73 95 Oxymask 2 04/05/18 13:29 85 13 04/05/18 13:29 83 13 95 04/05/18 13:28 148/87 04/05/18 13:24 84 17 04/05/18 13:24 84 17 95 04/05/18 13:21 173/91 04/05/18 13:20 84 15 173/91 95 Oxymask 2 04/05/18 13:19 84 18 04/05/18 13:19 84 18 97 04/05/18 13:16 186/80 04/05/18 13:14 83 17 100 04/05/18 13:14 83 17 04/05/18 13:11 179/82 04/05/18 13:10 83 17 179/82 100 Oxymask 8 04/05/18 13:09 84 18 04/05/18 13:09 83 18 100 04/05/18 13:06 192/89 04/05/18 13:04 83 21 99 04/05/18 13:04 83 21 04/05/18 13:02 184/87 04/05/18 13:00 84 18 184/87 99 Oxymask 8 04/05/18 12:59 84 19 04/05/18 12:59 83 19 99 04/05/18 12:56 191/88 04/05/18 12:55 191/84 04/05/18 12:54 92 22 177/109 99 04/05/18 12:54 36.5 87 16 191/84 99 Oxymask 8 04/05/18 12:54 88 22 04/05/18 08:48 94 Room Air 04/05/18 08:00 Room Air 04/05/18 07:55 37.1 86 18 181/74 (109) 94 Room Air Notes Mental Status: alert / awake / arousable, participated in evaluation Pt Amnestic to Procedure: Yes Nausea / Vomiting: adequately controlled Pain: adequately controlled Airway Patency, RR, SpO2: stable & adequate BP & HR: stable & adequate Hydration State: stable & adequate Anesthetic Complications: no major complications apparent
[2018-04-05] MEDS ORDERED: METOPROLOL TARTRATE 50 MG TAB PO STA (15:11)
[2018-04-05] MEDS: OXYCODONE HCL IR 5 MG TAB (IMMEDIATE RELEASE) PO PRN ×2 (15:27→20:37)
--- NOTE | 2018-04-05 19:23 | Progress Note ---
Subjective Date of Service: Apr 05, 2018. Subjective Pt evaluation today including: conversation w/ patient, physical exam, chart review, lab review, review of studies (op note, CT/MRI l spine, etc), review of inpatient medication list Pain: left leg "burning" - anterior thigh PO Intake: hasn't eaten since return from OR Voiding: no voiding problems I saw the patient post-op from her lumbar surgery she was resting flat in the bed w/o dyspnea, cp, or abd pain denied any nausea c/o burning pain in left thigh; denies pain/numbness in lower legs or feet Problem List Medical Problems: (1) Mass of spinal cord Status: Acute Review of Systems Constitutional: No fever Respiratory: No shortness of breath Cardiac: No chest pain, No orthopnea Abdomen: No pain Objective Vital Signs Date Time Temp Pulse Resp B/P (MAP) Pulse Ox O2 Delivery O2 Flow Rate FiO2 04/05/18 17:31 36.5 89 18 189/100 (129) 98 Nasal Cannula 3.0 04/05/18 16:35 36.7 84 16 179/94 (122) 97 Nasal Cannula 3.0 04/05/18 15:35 36.8 79 16 175/84 (114) 98 Nasal Cannula 3.0 04/05/18 15:30 Nasal Cannula 2.0 04/05/18 15:05 36.6 82 16 186/111 (136) 99 Nasal Cannula 3.0 04/05/18 14:35 36.5 82 18 172/90 (117) 3 Nasal Cannula 95 04/05/18 14:35 Nasal Cannula 3.0 04/05/18 14:35 Nasal Cannula 3.0 04/05/18 14:19 83 15 93 04/05/18 14:19 84 15 04/05/18 14:16 171/93 04/05/18 14:14 82 20 94 04/05/18 14:14 83 20 04/05/18 14:12 172/78 04/05/18 14:09 83 14 95 04/05/18 14:09 87 14 04/05/18 14:06 177/83 04/05/18 14:04 82 15 95 04/05/18 14:04 82 15 04/05/18 14:02 175/83 04/05/18 13:59 82 14 7/24/18 13:59 82 14 95 04/05/18 13:58 81 17 96 04/05/18 13:58 81 17 04/05/18 13:57 139/80 04/05/18 13:53 36.4 81 18 139/80 (86) 95 Nasal Cannula 2 04/05/18 13:53 81 13 04/05/18 13:53 82 13 96 04/05/18 13:51 158/120 04/05/18 13:48 81 20 94 04/05/18 13:48 81 20 04/05/18 13:47 142/81 04/05/18 13:45 82 22 91 04/05/18 13:45 81 22 04/05/18 13:41 175/77 04/05/18 13:40 81 18 04/05/18 13:40 81 18 97 04/05/18 13:36 158/88 04/05/18 13:35 82 13 97 04/05/18 13:35 81 13 04/05/18 13:34 82 13 97 04/05/18 13:34 82 13 04/05/18 13:31 164/76 04/05/18 13:30 81 14 164/73 95 Oxymask 2 04/05/18 13:29 85 13 04/05/18 13:29 83 13 95 04/05/18 13:28 148/87 04/05/18 13:24 84 17 04/05/18 13:24 84 17 95 04/05/18 13:21 173/91 04/05/18 13:20 84 15 173/91 95 Oxymask 2 04/05/18 13:19 84 18 04/05/18 13:19 84 18 97 04/05/18 13:16 186/80 04/05/18 13:14 83 17 100 04/05/18 13:14 83 17 04/05/18 13:11 179/82 04/05/18 13:10 83 17 179/82 100 Oxymask 8 04/05/18 13:09 84 18 04/05/18 13:09 83 18 100 04/05/18 13:06 192/89 04/05/18 13:04 83 21 99 04/05/18 13:04 83 21 04/05/18 13:02 184/87 04/05/18 13:00 84 18 184/87 99 Oxymask 8 04/05/18 12:59 84 19 04/05/18 12:59 83 19 99 04/05/18 12:56 191/88 04/05/18 12:55 191/84 04/05/18 12:54 92 22 177/109 99 04/05/18 12:54 36.5 87 16 191/84 99 Oxymask 8 04/05/18 12:54 88 22 04/05/18 08:48 94 Room Air 04/05/18 08:00 Room Air 04/05/18 07:55 37.1 86 18 181/74 (109) 94 Room Air 04/04/18 23:50 Room Air 04/04/18 23:00 36.8 83 16 144/76 (98) 95 Room Air Physical Exam General Appearance: no apparent distress ENT: pharynx normal Neck: no JVD Respiratory/Chest: lungs clear, no respiratory distress, no accessory muscle use, + decreased breath sounds (mild, bases only) Cardiovascular: regular rate, rhythm, no gallop, no murmur Abdomen: normal bowel sounds, non tender, soft, no organomegaly Extremities: no pedal edema Neurologic/Psychiatric: alert, oriented x 3, + pertinent finding (strength dorsiflexion/plantarflexion 5/5 b/l ankles/feet) Skin: no rash Laboratory Results Last 24 Hours Test 04/05/18 06:41 Sodium Level 135 mmol/L Potassium Level 4.0 mmol/L Chloride Level 102 mmol/L Carbon Dioxide Level 27 mmol/L Anion Gap 6.0 mmol/L Blood Urea Nitrogen 29 mg/dl Creatinine 1.31 mg/dl Est Creatinine Clear Calc Drug Dose 30.4 ml/min Estimated GFR () 44.8 Estimated GFR (Non- 38.6 BUN/Creatinine Ratio 22.3 Random Glucose 86 mg/dl Calcium Level 9.2 mg/dl Assessment and Plan 77yo female: 1. massive T12-L1 herniated disc - s/p lumbar decompression medial facetectomies T11-T12 and T12-L1 with facetectomy T12-L1 on the left, posterior spinal fusion T12-L1, placement posterior instrumentation T12-L1, and interbody fusion T12-L1 by Dr. Mays today. Defer management to his team. Having severe radicular/neuropathic pain. Will start gabapentin 100mg HS and then titrate from there. She takes elavil at home but it is inferior to gabapentin for neuropathic pain control. Continue IV/PO pain meds, etc. 2. mild acute kidney injury - hold ARB, hold HCTZ. Hydrate, bmp am. 3. HTN - severely uncontrolled; suspect 2nd to significant pain. Treat the pain. And if still high then add metoprolol 50mg at HS. Steroids will make her BPs worse. 4. CKD stage 3 - BMP in am. 5. chronic pain syndrome - I reviewed [place] prescription [place] on-line and the patient received 180 tabs of norco 10's every 30 days as well as ativan 0.5mg TID. I assume she takes the pain meds for chronic lumbar back pain. She will have a considerable tolerance for narcotics and frequent adjustments will likely be necessary. Dr. Mays's team has placed the patient on decadron TID intravenously and this will likely affect her BPs. 6. chronic anxiety - see #5 above - restart ativan 0.5mg TID per chronic, home schedule. This will prevent benzo withdrawal. 7. DVT proph - SCDs. Chemical means contraindicated. 8. asthma - continue advair; no exacerbation at this time. 9. FEN - continue IVF, diet as tolerated, BMP/mag am. 10. GI proph - senna with miralax. Continued [facility] stay due to: inadequate oral pain control, ambulation difficulties, multiple IV medications needed Discharge planning: uncertain
[2018-04-05] MEDS: CEFAZOLIN IV 1,000 MG in SYRINGE 0 ML IV SCH (19:25)
[2018-04-05] MEDS: DEXAMETHASONE INJ 6 MG in SYRINGE 0 ML IV SCH (19:26)
[2018-04-05] MEDS: AMITRIPTYLINE HCL 10 MG TAB PO SCH (20:35)
[2018-04-05] MEDS: LORAZEPAM 0.5 MG TAB PO SCH (20:35)
[2018-04-05] MEDS: DOCUSATE SODIUM/SENNA 50/8.6MG TAB PO SCH (20:36)
[2018-04-05] MEDS: METOPROLOL TARTRATE 50 MG TAB PO SCH (20:57)
[2018-04-05] MEDS ORDERED: GABAPENTIN 100 MG CAP PO SCH (21:00)
[2018-04-06] VITALS (7 sets, daily range): BP systolic 133–180; BP diastolic 70–93; PULSE 74–81; TEMP 36.5–36.8; O2SAT 96–98
[2018-04-06] MEDS: OXYCODONE HCL IR 5 MG TAB (IMMEDIATE RELEASE) PO PRN (02:09)
[2018-04-06] MEDS: SODIUM CHLORIDE 0.9% 1000ML 1,000 ML IV SCH (02:09)
[2018-04-06] MEDS: CEFAZOLIN IV 1,000 MG in SYRINGE 0 ML IV SCH (03:34)
[2018-04-06] MEDS: DEXAMETHASONE INJ 6 MG in SYRINGE 0 ML IV SCH ×2 (03:38→13:09)
[2018-04-06] MEDS: HYDROCODONE/ACETAMI 10/325 TAB PO PRN ×2 (03:44→22:09)
[2018-04-06] MEDS: KETOROLAC TROMETHAMINE 15 MG/ML VIAL IV. PRN (05:26)
[2018-04-06] MEDS ORDERED: HYDROmorphone INJ 0.5 MG/0.5 ML SYR IV PRN (06:00)
--- NOTE | 2018-04-06 07:58 | Anesthesiology Progress Note ---
Anesthesia Post Op Note Date & Time Apr 06, 2018 at 07:58 Vital Signs Pain Intensity: 8.0 Vital Signs Past 12 Hours Date Time Temp Pulse Resp B/P (MAP) Pulse Ox O2 Delivery O2 Flow Rate FiO2 04/06/18 03:56 36.6 78 18 160/77 (104) 98 Room Air 04/06/18 00:10 Room Air 04/05/18 22:58 36.8 78 16 161/82 (108) 95 Room Air 04/05/18 20:39 81 162/72 (102) Notes Mental Status: alert / awake / arousable, participated in evaluation Pt Amnestic to Procedure: Yes Nausea / Vomiting: adequately controlled Pain: adequately controlled Airway Patency, RR, SpO2: stable & adequate BP & HR: stable & adequate Hydration State: stable & adequate Anesthetic Complications: no major complications apparent
[2018-04-06 08:14] LABS: HEMATOCRIT 34.4 % (37-47); HEMOGLOBIN 11.3 g/dL (12.0-16.0); IG# 0.04 K/uL (0.00-0.02); LYMPH % 8.8 %; LYMPH ABS # 0.91 K/uL (1.2-3.4); MEAN CORPUSCULAR HEMOGLOBIN 30.5 pg (25-34); MEAN CORPUSCULAR HGB CONC 32.8 g/dl (32-36); MEAN PLATELET VOLUME 9.6 fL (7.4-10.4); MONO % 5.1 %; MONO ABS # 0.53 K/uL (0.11-0.59); NEUT % 85.7 %; NEUT ABS # 8.92 K/uL (1.4-6.5); PLATELET COUNT 259 K/uL (130-400); RED CELL DISTRIBUTION WIDTH SD 47.7 fL (36.4-46.3)
[2018-04-06 08:46] LABS: CALCIUM 8.4 mg/dl (8.5-10.1); CREATININE 1.1 mg/dl (0.60-1.20); POTASSIUM 3.8 mmol/L (3.5-5.1)
[2018-04-06] MEDS ORDERED: MAGNESIUM SULFATE 1GM / D5W 100 ML IV STA (09:27)
[2018-04-06] MEDS ORDERED: LOSARTAN POTASSIUM 50 MG TAB PO ONE (09:30)
[2018-04-06] MEDS: FLUTICASONE/SALMETEROL 250/50 (ADVAIR) 14 PUFF/1 INHALER INH SCH ×2 (09:40→22:08)
[2018-04-06] MEDS: ATORVASTATIN 10 MG TAB PO SCH (09:40)
[2018-04-06] MEDS: METOPROLOL SUCC 50MG EXT REL TAB PO SCH (09:44)
[2018-04-06] MEDS: LORAZEPAM 0.5 MG TAB PO SCH ×3 (09:44→22:08)
[2018-04-06] MEDS ORDERED: NURSING VERBAL MED ORDER ONE (09:45)
[2018-04-06] MEDS: GABAPENTIN 300 MG CAP PO SCH ×2 (13:41→22:09)
[2018-04-06] MEDS: GABAPENTIN 100 MG CAP PO SCH ×2 (13:41→22:09)
--- NOTE | 2018-04-06 15:24 | Progress Note ---
Progress Note Date of Service Apr 06, 2018. Progress Note Patient's back pain is controlled. She has some pain in the lower extremities. She is denying headaches at this time. Vital signs are stable. LINH drain stable 150 cc today. On exam she is excellent strength testing sensation she has hyperesthetic to lower extremities. Plan at this time will maintain bedrest but she is able to sit up in bed. Will reassess in a.m. possibly begin bed to chair transfers.
[2018-04-06] MEDS: METOPROLOL TARTRATE 50 MG TAB PO SCH (22:10)
[2018-04-06] MEDS: DOCUSATE SODIUM/SENNA 50/8.6MG TAB PO SCH (22:10)
[2018-04-06] MEDS: AMITRIPTYLINE HCL 10 MG TAB PO SCH (22:10)
[2018-04-07] VITALS (7 sets, daily range): BP systolic 137–179; BP diastolic 64–95; PULSE 71–95; TEMP 36.4–36.9; O2SAT 95–97
[2018-04-07] MEDS: HYDROCODONE/ACETAMI 10/325 TAB PO PRN (03:13)
--- NOTE | 2018-04-07 04:46 | Progress Note ---
Subjective Date of Service: Apr 06, 2018. Subjective Pt evaluation today including: conversation w/ patient, conversation w/ family (sister, niece at bedside), physical exam, chart review, lab review, review of inpatient medication list Pain: back; left thigh paresthesias PO Intake: ate breakfast well Voiding: no voiding problems patient overall doing well except for fairly significant "burning pain" of the left thigh/leg otherwise denies dyspnea, cp, abd pain +flatus Problem List Medical Problems: (1) Mass of spinal cord Status: Acute Review of Systems Constitutional: No fever Respiratory: No cough Cardiac: No chest pain, No orthopnea Abdomen: No pain Objective Vital Signs Date Time Temp Pulse Resp B/P (MAP) Pulse Ox O2 Delivery O2 Flow Rate FiO2 04/06/18 15:07 36.8 81 18 150/70 (96) 96 Room Air 04/06/18 14:00 Room Air 04/06/18 11:58 96 Room Air 04/06/18 11:54 36.6 78 15 146/80 (102) 96 Room Air 04/06/18 07:50 36.6 78 15 150/86 (107) 96 Room Air 04/06/18 03:56 36.6 78 18 160/77 (104) 98 Room Air 04/06/18 00:10 Room Air 04/05/18 22:58 36.8 78 16 161/82 (108) 95 Room Air 04/05/18 20:39 81 162/72 (102) Physical Exam General Appearance: no apparent distress ENT: pharynx normal Neck: no JVD Respiratory/Chest: lungs clear, no respiratory distress, no accessory muscle use Cardiovascular: regular rate, rhythm, no gallop, no murmur Abdomen: normal bowel sounds, non tender, no organomegaly, + distended ( minimally) Extremities: no pedal edema Neurologic/Psychiatric: alert, oriented x 3, + pertinent finding (strength b/l ankleflexion/dorsiflexion 5/5) Laboratory Results Last 24 Hours Test 04/06/18 07:17 White Blood Count 10.40 K/uL Red Blood Count 3.70 M/uL Hemoglobin 11.3 g/dL Hematocrit 34.4 % Mean Corpuscular Volume 93.0 fL Mean Corpuscular Hemoglobin 30.5 pg Mean Corpuscular Hemoglobin Concent 32.8 g/dl Platelet Count 259 K/uL Mean Platelet Volume 9.6 fL Neutrophils (%) (Auto) 85.7 % Lymphocytes (%) (Auto) 8.8 % Monocytes (%) (Auto) 5.1 % Eosinophils (%) (Auto) 0.0 % Basophils (%) (Auto) 0.0 % Neutrophils # (Auto) 8.92 K/uL Lymphocytes # (Auto) 0.91 K/uL Monocytes # (Auto) 0.53 K/uL Eosinophils # (Auto) 0.00 K/uL Basophils # (Auto) 0.00 K/uL RDW Standard Deviation 47.7 fL RDW Coefficient of Variation 14.0 % Immature Granulocyte % (Auto) 0.4 % Immature Granulocyte # (Auto) 0.04 K/uL Sodium Level 138 mmol/L Potassium Level 3.8 mmol/L Chloride Level 105 mmol/L Carbon Dioxide Level 24 mmol/L Anion Gap 9.0 mmol/L Blood Urea Nitrogen 31 mg/dl Creatinine 1.10 mg/dl Est Creatinine Clear Calc Drug Dose 36.2 ml/min Estimated GFR () 55.3 Estimated GFR (Non- 47.7 BUN/Creatinine Ratio 28.0 Random Glucose 127 mg/dl Calcium Level 8.4 mg/dl Magnesium Level 1.7 mg/dl Assessment and Plan 77yo female: 1. massive T12-L1 herniated disc - s/p lumbar decompression medial facetectomies T11-T12 and T12-L1 with facetectomy T12-L1 on the left, posterior spinal fusion T12-L1, placement posterior instrumentation T12-L1, and interbody fusion T12-L1 by Dr. Mays, POD #1. Defer management to his team. Still having significant radicular/neuropathic pain. Started gabapentin last evening; tolerated this. Increase the gabapentin dose to TID dosing. She takes elavil at home but it is inferior to gabapentin for neuropathic pain control. Continue IV/PO pain meds, etc. 2. mild acute kidney injury - resolved; resume ARB. BMP am. 3. HTN - uncontrolled but slowly improving. Add back the ARB. Treat the pain. Continue BB twice a day. 4. CKD stage 3 - BMP in am. 5. chronic pain syndrome - I reviewed the [place] prescription database on-line and the patient received 180 tabs of norco 10's every 30 days as well as ativan 0.5mg TID. I assume she takes the pain meds for chronic lumbar back pain. She will have a considerable tolerance for narcotics and frequent adjustments will likely be necessary. 6. chronic anxiety - ativan TID per home dosing. 7. DVT proph - SCDs. Chemical means contraindicated. 8. asthma - continue advair; no exacerbation at this time. 9. FEN - BMP/mag in am. 10. GI proph - senna with miralax. 11. hypomagnesemia - mild - 1 gm mag sulfate today with repeat mag level am. Continued [facility] stay due to: inadequate oral pain control, ambulation difficulties, multiple IV medications needed Discharge planning: uncertain
[2018-04-07] MEDS ORDERED: POLYETHYLENE (MIRALAX) 17 GM PACK PO SCH (06:00)
[2018-04-07 06:44] LABS: CALCIUM 8.5 mg/dl (8.5-10.1); CREATININE 1.12 mg/dl (0.60-1.20)
[2018-04-07] MEDS ORDERED: RXC5 PO (08:00)
--- NOTE | 2018-04-07 08:01 | Discharge Instructions ---
Discharge Instructions Date of Service Apr 07, 2018. Admission Reason for Admission: Abnormal Mri,Thoracic Spine Discharge Discharge Diagnosis / Problem: thoracic stenosis Discharge Goals Goal(s): Improve function Activity Recommendations Activity Limitations: per Instructions/Follow-up section . Instructions / Follow-Up Instructions / Follow-Up ACTIVITY RECOMMENDATIONS: SELF CARE INSTRUCTIONS AFTER THORACIC/LUMBAR FUSIONS 1. You may walk to your tolerance. It is good exercise for your legs and back. Expect some back and intermittent leg aches and pains. 2. You may perform "counter-top" level activities (make a sandwich, natasha with a project, etc.). 3. No bending or lifting of more than 10 pounds or back twisting of any nature (roll like a log when turning in bed). 4. You may ride in a car for 20-30 minutes at a time. No driving until after your first visit with your doctor. 5. Frequent changes of position and restricting sitting to 30 minutes at a time will help limit the amount of back spasms and stiffness you may experience. 6. You may discontinue the use of ambulatory aids (cane, crutches, etc.) once your strength and confidence allow. 7. You may head of research & insights the shower and let water strike your incision when you arrive home at least once daily. Do not take a tub bath, sit in a hot tub or go into a swimming pool until after your first recheck in the office. SPECIAL CARE INSTRUCTIONS: VERY IMPORTANT TO READ AND REVIEW A. Your surgical incision has been closed with a cosmetic suture under the skin that will dissolve in about 6 weeks. In 14 days, you can use a pair of clean scissors and cut the suture that is left outside of the skin at the ends of your incision. 1. The small skin tapes can be removed 7 days after surgery if they have not fallen off by that point. 2. You may keep the wound open to air as much as possible to promote healing after post-op day number 5 unless told otherwise by your doctor. 3. If you think the wound looks like it is becoming infected (redness or worsening drainage) and/or you are experiencing fever, chill or worsening back pain and muscle spasms, contact the office so that we may evaluate you as soon as possible. B. Complications are uncommon, but please contact us if you have any signs or symptoms of: 1. wound infection (fever higher than 102.5 degrees F, redness, separation of wound, drainage, or increasing pain from the incision) 2. blood clots in legs (pain, swelling, redness and warmth in legs) 3. urinary tract infection (fever higher than 102.5 degrees F, burning upon urination or increased frequency of urination) 4. nerve problems (inability to walk on your toes or heels, numbness, loss of bowel or bladder control) 5. any other symptoms that concern you C. Please call the office at if you have any concerns or questions about your operation or recovery. D. No smoking! Smoking drastically decreases the chance of a solid fusion. E. Do not take any anti-inflammatory medications (Indocin, Advil, Motrin, Aspirin, Naprosyn, etc.) as these may inhibit the chance of a solid fusion. Tylenol is okay to take for pain. MANAGING PAIN AFTER SPINAL SURGERY 1. Narcotic medication is intended for short-term use and will be provided for surgical pain. Surgical pain usually lasts for a period of 4-6 weeks. Narcotic medication includes Percocet, Vicodin, Darvocet, Tylenol #3 or Lortab. 2. Longer-term pain is more appropriately treated with non-narcotic medication such as Tylenol ES. 3. Muscle spasm is not appropriately treated with narcotics. Muscle relaxers such as Soma, Flexeril or Skelaxin can be used along with Tylenol ES. 4. Remember that we all live with some "aches and pains". This is not unusual or uncommon after an injury or as we get older. a. Back pain is expected and may include muscle spasms for 4 to 6 weeks after surgery. The pain should gradually improve. If the pain worsens for no apparent reason, please contact the office. b. Intermittent leg pain may also be experienced and should not be concerned about unless it worsens for no apparent reason. If so, please contact the office. 5. We will provide appropriate medication within the normal guidelines of their prescribed use. We will also be very cautious and aware of potential abuse and extended duration of patients' medication needs. a. Pain medications are for your comfort and to assist with sleep and rest so that the tissue can heal. They are not provided in order to return to normal activity and should not be used through the day. To do so or worsening pain at night can result from ongoing tissue damage and development of tolerance to the prescribed medicine. 6. Please allow 2-3 days to process refills. Prescriptions will not be mailed but must be picked up at the office. FOLLOW UP VISIT: Keep your scheduled follow-up appointment. Any questions, please call the office at . Current Hospital Diet Patient's current hospital diet: Regular Diet Discharge Diet Recommended Diet: Regular Diet Procedures Procedures Performed: 1. Lumbar decompression medial facetectomies T11-T12 T12-L1 with facetectomy T12-L1 on the left. 2 posterior spinal fusion T12-L1. #3 placement posterior instrumentation T12-L1. #4 interbody fusion T12-L1. #5 placed a peek cage 7 mm in height at T12-L1. #6 placement of local autograft in the posterior gutters per #7 placement InFUSE collagen sponge Bymaster graft the posterior lateral gutters and ostial amp in the interbody space. Pending Studies Studies pending at discharge: no Medical Emergencies . Who to Call and When: Medical Emergencies: If at any time you feel your situation is an emergency, please call 911 immediately. . Non-Emergent Contact Non-Emergency issues call your: Primary Care Provider . "Provider Documentation" section prepared by [place]. .
[2018-04-07] MEDS: FLUTICASONE/SALMETEROL 250/50 (ADVAIR) 14 PUFF/1 INHALER INH SCH ×2 (08:59→21:24)
[2018-04-07] MEDS: LORAZEPAM 0.5 MG TAB PO SCH ×3 (09:01→21:23)
[2018-04-07] MEDS: LOSARTAN POTASSIUM 50 MG TAB PO SCH (09:02)
[2018-04-07] MEDS: ATORVASTATIN 10 MG TAB PO SCH (09:02)
[2018-04-07] MEDS: METOPROLOL SUCC 50MG EXT REL TAB PO SCH (09:03)
[2018-04-07] MEDS: GABAPENTIN 300 MG CAP PO SCH ×3 (09:03→21:25)
[2018-04-07] MEDS ORDERED: NURSING VERBAL MED ORDER ONE (11:45)
[2018-04-07] MEDS: ACETAMINOPHEN 500 MG TAB PO PRN (12:09)
--- NOTE | 2018-04-07 14:27 | Progress Note ---
Progress Note Date of Service Apr 07, 2018. Progress Note Patient's back pain is controlled leg pain improved vital signs stable. LINH drain decreasing. In exam she is in the chair to bed at bedside is comfortable is good strength testing. Assessment status post I&D per plan at this time will maintain the LINH drain continue physical therapy anticipate discharge to [facility] Wednesday.
--- NOTE | 2018-04-07 14:28 | Progress Note ---
Progress Note Date of Service Apr 07, 2018. Progress Note Patient's leg symptoms are improving. She did have a postural headache this afternoon. I have had her drain DC'd and placed at bedrest. Explained to the family and the patient was happening will maintain bed rest for at least 24 possibly 48 hours before reestablishing therapy.
[2018-04-07] MEDS: KETOROLAC TROMETHAMINE 15 MG/ML VIAL IV. PRN (14:41)
[2018-04-07] MEDS: OXYCODONE HCL IR 5 MG TAB (IMMEDIATE RELEASE) PO PRN (18:12)
[2018-04-07] MEDS: DOCUSATE SODIUM/SENNA 50/8.6MG TAB PO SCH (21:00)
[2018-04-07] MEDS: AMITRIPTYLINE HCL 10 MG TAB PO SCH (21:24)
[2018-04-07] MEDS: METOPROLOL TARTRATE 25 MG TAB PO SCH (21:24)
[2018-04-08] MEDS: ONDANSETRON INJ 2 MG/ML 2 ML VIAL IV PRN ×2 (03:45→11:54)
[2018-04-08 07:50] VITALS: BP 162/84; PULSE 85; TEMP 36.5; O2SAT 97
--- NOTE | 2018-04-08 07:51 | Progress Note ---
Subjective Date of Service: Apr 07, 2018. Subjective Pt evaluation today including: conversation w/ patient, physical exam, chart review, lab review Pain: still with painful paresthesias of left leg PO Intake: normal Voiding: no voiding problems feeling good sitting in chair during my visit no dyspnea, cp or abd pain +flatus but no stool yet Problem List Medical Problems: (1) Mass of spinal cord Status: Acute Review of Systems Constitutional: No fever Respiratory: No cough Cardiac: No chest pain, No orthopnea, No edema Abdomen: No pain Objective Vital Signs Date Time Temp Pulse Resp B/P (MAP) Pulse Ox O2 Delivery O2 Flow Rate FiO2 04/07/18 16:05 36.6 86 18 161/64 (96) 96 Room Air 04/07/18 12:15 36.6 95 73 153/67 (95) 95 Room Air 04/07/18 11:43 36.9 72 20 137/80 (99) 97 Room Air 04/07/18 08:19 97 Room Air 04/07/18 07:45 Room Air 04/07/18 07:42 36.4 71 20 179/95 (123) 97 Room Air 04/06/18 23:33 133/92 (106) 04/06/18 23:25 Room Air 04/06/18 23:23 36.5 74 18 180/93 (122) 96 Room Air Physical Exam General Appearance: no apparent distress, + pertinent finding (looks great) ENT: pharynx normal Neck: no JVD Respiratory/Chest: lungs clear, no respiratory distress, no accessory muscle use Cardiovascular: regular rate, rhythm, no gallop, no murmur Abdomen: normal bowel sounds, non tender, soft, no organomegaly Extremities: no pedal edema Neurologic/Psychiatric: alert, oriented x 3 Laboratory Results Last 24 Hours Test 04/07/18 05:40 Sodium Level 131 mmol/L Potassium Level 4.0 mmol/L Chloride Level 99 mmol/L Carbon Dioxide Level 23 mmol/L Anion Gap 9.0 mmol/L Blood Urea Nitrogen 37 mg/dl Creatinine 1.12 mg/dl Est Creatinine Clear Calc Drug Dose 35.0 ml/min Estimated GFR () 53.7 Estimated GFR (Non- 46.4 BUN/Creatinine Ratio 33.2 Random Glucose 124 mg/dl Calcium Level 8.5 mg/dl Magnesium Level 2.3 mg/dl Assessment and Plan 77yo female: 1. massive T12-L1 herniated disc - POD #2 - s/p lumbar decompression medial facetectomies T11-T12 and T12-L1 with facetectomy T12-L1 on the left, posterior spinal fusion T12-L1, placement posterior instrumentation T12-L1, and interbody fusion T12-L1 by Dr. Mays. Defer management to his team. Still having significant radicular/neuropathic pain. Increase the gabapentin TID dosing. She takes elavil at home but it is inferior to gabapentin for neuropathic pain control. Continue IV/PO pain meds, etc. 2. mild acute kidney injury - resolved; resumed ARB. BMP am. 3. HTN - uncontrolled - increase HS beta catrachito dose. Treat the pain. 4. CKD stage 3 - BMP in am. 5. chronic pain syndrome - I reviewed the [place] prescription database on-line and the patient received 180 tabs of norco 10's every 30 days as well as ativan 0.5mg TID. I assume she takes the pain meds for chronic lumbar back pain. She will have a considerable tolerance for narcotics and frequent adjustments will likely be necessary. 6. chronic anxiety - ativan TID per home dosing. 7. DVT proph - SCDs. Chemical means contraindicated. 8. asthma - continue advair; no exacerbation at this time. 9. FEN - BMP am; eating well. 10. GI proph - senna with miralax. 11. hypomagnesemia - resolved. 12. hyponatremia - at risk for SIADH - BMP, serum osm in am. doing nicely with PT, OT Continued [facility] stay due to: inadequate oral pain control, ambulation difficulties, multiple IV medications needed Discharge planning: home with home health
[2018-04-08] MEDS: OXYCODONE HCL IR 5 MG TAB (IMMEDIATE RELEASE) PO PRN (08:50)
[2018-04-08] MEDS: KETOROLAC TROMETHAMINE 15 MG/ML VIAL IV. PRN (08:51)
[2018-04-08] MEDS: FLUTICASONE/SALMETEROL 250/50 (ADVAIR) 14 PUFF/1 INHALER INH SCH ×2 (09:12→21:31)
[2018-04-08] MEDS: ATORVASTATIN 10 MG TAB PO SCH (09:12)
[2018-04-08 09:20] VITALS: O2SAT 97
[2018-04-08 09:33] LABS: CALCIUM 8.6 mg/dl (8.5-10.1); CREATININE 1.03 mg/dl (0.60-1.20); POTASSIUM 3.9 mmol/L (3.5-5.1)
[2018-04-08] MEDS ORDERED: HYDROCHLOROTHIAZIDE 25 MG TAB PO STA (09:36)
[2018-04-08] MEDS: LORAZEPAM 0.5 MG TAB PO SCH ×3 (10:29→21:31)
[2018-04-08] MEDS: METOPROLOL SUCC 50MG EXT REL TAB PO SCH (10:30)
[2018-04-08] MEDS: GABAPENTIN 300 MG CAP PO SCH ×3 (10:31→21:33)
[2018-04-08] MEDS: LOSARTAN POTASSIUM 50 MG TAB PO SCH (10:32)
--- NOTE | 2018-04-08 13:18 | Progress Note ---
Progress Note Date of Service Apr 08, 2018. Progress Note Patient's back pain is controlled leg symptoms markedly improved. She has no headaches. Vital signs are stable. On exam his dressings in place and dry. She is good strength testing. Assessment status post thoracic decompression fusion per plan at this time we will allow her to sit up in bed to eat to maintain bed rest overall. Will reassess her in a.m. possibly consider transfer to a chair this weekend.
[2018-04-08] MEDS: PROMETHAZINE HCL INJ 12.5 MG in SODIUM CHLORIDE 0.9% 50ML 50 ML IV PRN ×2 (14:05→20:13)
--- NOTE | 2018-04-08 14:35 | DIAGNOSTIC IMAGING REPORT ---
KUB HISTORY: Acute generalized abdominal pain and distention with vomiting post-op abd distension, vomiting COMPARISON: Lumbar spine CT 04/04/2018. FINDINGS: Gaseous distention of the stomach. The bowel gas pattern is nonobstructive. Mildly prominent air-filled loops of small bowel within the central abdomen. Surgical clips project about the left midabdomen. No urolith identified, however the right renal shadow is obscured secondary to bowel gas. Calcifications of the pelvis suggest phleboliths. Degenerative changes of the spine, pelvis and hips. Fusion hardware with discectomy changes are seen at L5-S1 and also at T12-L1. IMPRESSION: 1. Nonobstructive bowel gas pattern. Mildly prominent air-filled loops of small bowel within the central abdomen may reflect ileus with moderate gaseous distention of the stomach. 2. Postoperative findings as above. Electronically signed by: Nikhil Chacon M.D. 04/08/2018 2:34 PM Dictated Date/Time: 04/08/2018 2:29 PM
[2018-04-08] MEDS: RANITIDINE IV 50 MG in DEXTROSE 5% 100ML 100 ML IV SCH ×2 (14:40→21:39)
[2018-04-08 15:24] VITALS: BP 149/85; PULSE 85; TEMP 36.2; O2SAT 97
[2018-04-08 15:30] VITALS: O2SAT 97
[2018-04-08] MEDS: D5NSS + 20MEQ KCL 1,000 ML IV SCH (15:34)
[2018-04-08] MEDS ORDERED: HALOPERIDOL 0.5 MG TAB PO PRN (20:00)
[2018-04-08] MEDS: AMITRIPTYLINE HCL 10 MG TAB PO SCH (21:32)
[2018-04-08] MEDS: DOCUSATE SODIUM/SENNA 50/8.6MG TAB PO SCH (21:33)
[2018-04-08] MEDS: METOPROLOL TARTRATE 25 MG TAB PO SCH (21:33)
[2018-04-08 23:13] VITALS: BP 128/74; PULSE 96; TEMP 36.4; O2SAT 93
--- NOTE | 2018-04-09 01:35 | Progress Note ---
Subjective Date of Service: late entry for visit Apr 08, 2018. Subjective Pt evaluation today including: conversation w/ patient, conversation w/ family (sister at bedside), physical exam, chart review, lab review, review of studies (KUB x-rays), conversation w/ computing consultant (Dr. Mays), review of inpatient medication list Pain: back PO Intake: ate poorly today Voiding: no voiding problems 2 visit to see patient today during late AM rounds she reported having nausea upon awakening she attempted eating breakfast - ate little several hours later in the morning she had emesis during my visit she vomited brown liquid patient reports having stools yesterday and flatus despite the above no dyspnea during a 2nd visit much later in the day she was confused and trying to get out of bed Problem List Medical Problems: (1) Mass of spinal cord Status: Acute Review of Systems Constitutional: No fever Respiratory: No cough, No shortness of breath Cardiac: No chest pain Abdomen: + nausea, + vomiting, No pain Objective Vital Signs Date Time Temp Pulse Resp B/P (MAP) Pulse Ox O2 Delivery O2 Flow Rate FiO2 04/08/18 23:30 Room Air 04/08/18 23:13 36.4 96 20 128/74 (92) 93 Room Air 04/08/18 15:30 97 Room Air 04/08/18 15:24 36.2 85 16 149/85 (106) 97 Room Air 04/08/18 09:20 97 Room Air 04/08/18 07:50 36.5 85 18 162/84 (110) 97 Room Air 04/08/18 07:30 Room Air Physical Exam General Appearance: no apparent distress ENT: + pertinent finding (MM dry) Neck: no JVD Respiratory/Chest: lungs clear, no respiratory distress, no accessory muscle use Cardiovascular: regular rate, rhythm, no gallop, no murmur Abdomen: non tender, no organomegaly, + abnormal bowel sounds (decreased), + distended Extremities: no pedal edema Neurologic/Psychiatric: no motor/sensory deficits (strength 5/5 both legs), alert, + pertinent finding (mildly confused (during 2nd visit)) Laboratory Results Last 24 Hours Test 04/08/18 08:47 Sodium Level 134 mmol/L Potassium Level 3.9 mmol/L Chloride Level 98 mmol/L Carbon Dioxide Level 30 mmol/L Anion Gap 6.0 mmol/L Blood Urea Nitrogen 30 mg/dl Creatinine 1.03 mg/dl Est Creatinine Clear Calc Drug Dose 38.0 ml/min Estimated GFR () 59.5 Estimated GFR (Non- 51.3 BUN/Creatinine Ratio 29.4 Random Glucose 81 mg/dl Osmolality 282 mOsm/kg Calcium Level 8.6 mg/dl Assessment and Plan 77yo female: 1. massive T12-L1 herniated disc - POD #3 - s/p lumbar decompression medial facetectomies T11-T12 and T12-L1 with facetectomy T12-L1 on the left, posterior spinal fusion T12-L1, placement posterior instrumentation T12-L1, and interbody fusion T12-L1 by Dr. Mays. Defer management to his team. Cont gabapentin TID for paresthesias of left leg. She takes elavil at home but it is inferior to gabapentin for neuropathic pain control. Would d/c the elavil. Continue IV/PO pain meds, etc. 2. mild acute kidney injury - resolved; resumed ARB. BMP am. 3. HTN - BPs improving with adjustments made. 4. CKD stage 3 - BMP in am. 5. chronic pain syndrome - I reviewed the [place] prescription database on-line and the patient received 180 tabs of norco 10's every 30 days as well as ativan 0.5mg TID. I assume she takes the pain meds for chronic lumbar back pain. 6. chronic anxiety - ativan TID per home dosing. 7. DVT proph - SCDs. Chemical means contraindicated due to recent surgery of the back. 8. asthma - continue advair; no exacerbation at this time. 9. FEN - make NPO due to ileus; BMP am; due to NPO status will restart fluids. 10. GI proph - hold miralax due to ileus. 11. hypomagnesemia - resolved. 12. hyponatremia - mild, BMP largely stable today. 13. ileus - NPO, resume fluids, BMP/mag in am. 14. encephalopathy - possibly metabolic (from #13), possibly toxic (from phenergan etc). would stop elavil, phenergan, vistaril, and reglan she takes ativan regularly at home - ok to continue this to prevent withdrawal haldol 0.5mg at HS prn for severe delirium (give orally) 15. spinal headache - remains on bedrest per recommendations from Dr. Mays; the large T12-L1 herniation abutted the dura defer management to Dr. Mays Continued [facility] stay due to: inadequate po fluid intake, inadequate oral pain control, ambulation difficulties, multiple IV medications needed Discharge planning: home with home health
[2018-04-09] MEDS: D5NSS + 20MEQ KCL 1,000 ML IV SCH ×2 (03:51→15:29)
[2018-04-09] MEDS: RANITIDINE IV 50 MG in DEXTROSE 5% 100ML 100 ML IV SCH ×2 (05:36→13:21)
[2018-04-09 07:06] VITALS: BP 149/72; PULSE 96; TEMP 36.8; O2SAT 93
[2018-04-09 07:53] LABS: CREATININE 0.98 mg/dl (0.60-1.20)
[2018-04-09 07:54] LABS: CALCIUM 7.9 mg/dl (8.5-10.1); POTASSIUM 3.8 mmol/L (3.5-5.1)
[2018-04-09 08:34] VITALS: BP 158/90; PULSE 97; TEMP 36.8; O2SAT 92
[2018-04-09] MEDS: LORAZEPAM 0.5 MG TAB PO SCH ×3 (08:54→20:43)
[2018-04-09] MEDS: FLUTICASONE/SALMETEROL 250/50 (ADVAIR) 14 PUFF/1 INHALER INH SCH ×2 (08:54→20:41)
[2018-04-09] MEDS: HYDROCHLOROTHIAZIDE 25 MG TAB PO SCH (08:55)
[2018-04-09] MEDS: LOSARTAN POTASSIUM 50 MG TAB PO SCH (08:55)
[2018-04-09] MEDS: GABAPENTIN 300 MG CAP PO SCH ×3 (08:56→20:43)
[2018-04-09] MEDS: METOPROLOL SUCC 50MG EXT REL TAB PO SCH (08:56)
--- NOTE | 2018-04-09 09:00 | Consultant Recommendations ---
Interlocking And Signal Mechanic Recommendations Date of Service Apr 09, 2018. Interlocking And Signal Mechanic Recommendations Patient's back pain is well controlled. Leg symptoms markedly improved. She denies any headaches nausea or vomiting. She was tolerating sitting up in bed yesterday without difficulty. On exam she is good strength testing appears comfortable. Assessment status post lumbar decompression fusion T12-L1. Plan at this time will continue bedrest may sit up to tolerance. I will assess her in the a.m. at that point hopefully allow her to begin transitions to the chair and ambulation.
[2018-04-09] MEDS: KETOROLAC TROMETHAMINE 15 MG/ML VIAL IV. PRN (11:22)
[2018-04-09] MEDS: ACETAMINOPHEN 500 MG TAB PO PRN (11:22)
[2018-04-09 11:30] VITALS: BP 156/80; PULSE 99; TEMP 36.6; O2SAT 91
[2018-04-09] MEDS: ATORVASTATIN 10 MG TAB PO SCH (13:21)
[2018-04-09 15:30] VITALS: BP 110/66; PULSE 94; TEMP 36.5; O2SAT 93
--- NOTE | 2018-04-09 16:58 | Hospitalist Progress Note ---
Hospitalist Progress Note Date of Service Apr 09, 2018. Subjective Pt evaluation today including: conversation w/ patient RN reports patient's pain was much improved with Toradol today. She has been sleeping a lot. She is quite difficult to arouse when I went into the room, but after awakening, reported no pain at all. She denied chest pain or shortness of breath. She was alert and oriented, denied feeling nauseated any further. States she is not hungry but willing to try clears. All Other Systems: Reviewed and Negative Objective Vital Signs Date Time Temp Pulse Resp B/P (MAP) Pulse Ox O2 Delivery O2 Flow Rate FiO2 04/09/18 15:30 36.5 94 16 110/66 (81) 93 Room Air 04/09/18 15:20 Room Air 04/09/18 11:30 36.6 99 25 156/80 (105) 91 Room Air 04/09/18 09:58 Room Air 04/09/18 08:34 36.8 97 25 158/90 (112) 92 Room Air 04/09/18 07:06 36.8 96 20 149/72 (97) 93 Room Air 04/08/18 23:30 Room Air 04/08/18 23:13 36.4 96 20 128/74 (92) 93 Room Air Physical Exam General Appearance: WD/WN, no apparent distress Eyes: normal inspection, sclerae normal ENT: hearing grossly normal Neck: trachea midline Respiratory/Chest: lungs clear, normal breath sounds, no respiratory distress, no accessory muscle use Cardiovascular: regular rate, rhythm, no edema, no murmur Abdomen: normal bowel sounds, non tender, soft Extremities: normal inspection, no pedal edema, no calf tenderness Neurologic/Psychiatric: alert, normal mood/affect Skin: normal color, warm/dry, no rash Laboratory Results Last 24 Hours Test 04/09/18 06:33 Sodium Level 131 mmol/L Potassium Level 3.8 mmol/L Chloride Level 99 mmol/L Carbon Dioxide Level 26 mmol/L Anion Gap 6.0 mmol/L Blood Urea Nitrogen 20 mg/dl Creatinine 0.98 mg/dl Est Creatinine Clear Calc Drug Dose 40.0 ml/min Estimated GFR () 63.1 Estimated GFR (Non- 54.5 BUN/Creatinine Ratio 20.2 Random Glucose 158 mg/dl Calcium Level 7.9 mg/dl Magnesium Level 2.0 mg/dl Assessment and Plan This patient is an 78-year-old female here with 1. massive T12-L1 herniated disc - POD #4 - s/p lumbar decompression medial facetectomies T11-T12 and T12-L1 with facetectomy T12-L1 on the left, posterior spinal fusion T12-L1, placement posterior instrumentation T12-L1, and interbody fusion T12-L1 by Dr. Mays. Defer management to his team. Cont gabapentin TID for paresthesias of left leg. She takes elavil at home but it is inferior to gabapentin for neuropathic pain control. The Elavil has since been discontinued Continue IV/PO pain meds, etc. 2. mild acute kidney injury - resolved; resumed ARB. -Continue to follow BMP 3. HTN - BPs improving with adjustments made. 4. CKD stage 3 - BMP in am. 5. chronic pain syndrome/chronic opioid dependence-the previous hospitalist reviewed the [place] prescription database on-line and the patient received 180 tabs of norco 10's every 30 days as well as ativan 0.5mg TID. -Continue Ativan as above, continue pain control as above 6. chronic anxiety - ativan TID per home dosing. 7. DVT proph - SCDs. Chemical means contraindicated due to recent surgery of the back. 8. asthma - continue advair; no exacerbation at this time. 9. hypomagnesemia - resolved. 10. hyponatremia - mild, slightly worse today at 131, could be from mild dehydration from poor p.o. intake although has been on IV fluids with no improvement I/O's are inaccurate today showing that she has had over 6 L and of IV fluids-I have asked the nurse to correct this accordingly as she is only getting 80 ML's per hour of IV fluids and a few IV meds -Follow BMP in the morning 11. ileus -with nausea and vomiting on 04/08-now resolved -Continue IV fluids until taking adequate clear liquids and then can stop -Advance diet to clears and then further as tolerated -Bowel regimen 12. encephalopathy - possibly metabolic (from hyponatremia), possibly toxic ( from phenergan etc). Seems much improved today -Have since stopped elavil, phenergan, vistaril, and reglan, will stop diphenhydramine now she takes ativan regularly at home - ok to continue this to prevent withdrawal haldol 0.5mg at HS prn for severe delirium (give orally) 13. spinal headache - remains on bedrest per recommendations from Dr. Mays; the large T12-L1 herniation abutted the dura defer management to Dr. Mays Disposition-remain on surgical floor
[2018-04-09] MEDS: METOPROLOL TARTRATE 25 MG TAB PO SCH (20:43)
[2018-04-09] MEDS: DOCUSATE SODIUM/SENNA 50/8.6MG TAB PO SCH (20:43)
[2018-04-09 20:45] VITALS: BP 118/78; PULSE 94
[2018-04-09] MEDS: RANITIDINE HCL 150 MG TAB PO SCH (20:45)
[2018-04-09 22:59] VITALS: BP 124/78; PULSE 88; TEMP 36.9; O2SAT 92
[2018-04-10] VITALS (8 sets, daily range): BP systolic 75–158; BP diastolic 43–77; PULSE 87–97; TEMP 36.9–37.6; O2SAT 93–95
[2018-04-10] MEDS: D5NSS + 20MEQ KCL 1,000 ML IV SCH (04:40)
[2018-04-10] MEDS: OXYCODONE HCL IR 5 MG TAB (IMMEDIATE RELEASE) PO PRN (06:05)
[2018-04-10 07:10] LABS: CALCIUM 7.8 mg/dl (8.5-10.1); CREATININE 0.87 mg/dl (0.60-1.20)
[2018-04-10 07:21] LABS: BASO % 0.1 %; BASO ABS # 0.02 K/uL (0-0.2); EOS % 1.1 %; EOS ABS # 0.17 K/uL (0-0.5); HEMATOCRIT 30.5 % (37-47); HEMOGLOBIN 10.1 g/dL (12.0-16.0); IG# 0.06 K/uL (0.00-0.02); LYMPH ABS # 1.64 K/uL (1.2-3.4); MEAN CELL VOLUME 94.1 fL (80-100); MEAN CORPUSCULAR HEMOGLOBIN 31.2 pg (25-34); MEAN CORPUSCULAR HGB CONC 33.1 g/dl (32-36); MEAN PLATELET VOLUME 9.8 fL (7.4-10.4); MONO ABS # 1.79 K/uL (0.11-0.59); NEUT % 75.4 %; PLATELET COUNT 231 K/uL (130-400); RED CELL DISTRIBUTION WIDTH CV 14.3 % (11.5-14.5); RED CELL DISTRIBUTION WIDTH SD 49.6 fL (36.4-46.3); WHITE BLOOD COUNT 14.88 K/uL (4.8-10.8)
[2018-04-10] MEDS: GABAPENTIN 300 MG CAP PO SCH (08:56)
[2018-04-10] MEDS: ATORVASTATIN 10 MG TAB PO SCH (08:56)
[2018-04-10] MEDS: FLUTICASONE/SALMETEROL 250/50 (ADVAIR) 14 PUFF/1 INHALER INH SCH ×2 (08:56→20:50)
[2018-04-10] MEDS: RANITIDINE HCL 150 MG TAB PO SCH ×2 (08:56→20:50)
[2018-04-10] MEDS: LORAZEPAM 0.5 MG TAB PO SCH ×2 (08:56→20:53)
[2018-04-10] MEDS: HYDROCHLOROTHIAZIDE 25 MG TAB PO SCH (08:56)
[2018-04-10] MEDS: LOSARTAN POTASSIUM 50 MG TAB PO SCH (08:57)
[2018-04-10] MEDS ORDERED: METOPROLOL SUCC 50MG EXT REL TAB PO SCH (09:00)
[2018-04-10] MEDS: ACETAMINOPHEN 500 MG TAB PO PRN (09:02)
--- NOTE | 2018-04-10 10:52 | Progress Note ---
Progress Note Date of Service Apr 10, 2018. Progress Note Patient is quite comfortable at this time. She denies any leg pain denies any nausea vomiting or headaches. She was able to sit up in bed throughout the day yesterday without difficulty. On exam she is good strength testing appears comfortable. Assessment status post lumbar decompression fusion per plan at this time will initiate transfers from bed to chair today with assistance. If she progresses well today we will advance to physical therapy tomorrow.
[2018-04-10] MEDS ORDERED: NURSING VERBAL MED ORDER ONE (12:15)
[2018-04-10] MEDS ORDERED: SODIUM CHLORIDE 0.9% 250ML 250 ML IV SCH (12:45)
--- NOTE | 2018-04-10 12:50 | Hospitalist Progress Note ---
Hospitalist Progress Note Date of Service Apr 10, 2018. Subjective Pt evaluation today including: conversation w/ patient, conversation w/ family Patient much more alert today. Although when she went to stand up with nursing she looked very pale-nursing check blood pressure and it was in the 70s systolic. They laid her back down in bed and blood pressure quickly came back up. Patient was asymptomatic with this and not lightheaded. She denies chest pain or shortness of breath. Reports the pain in her back is tolerable. She is tolerating regular diet. All Other Systems: Reviewed and Negative Objective Vital Signs Date Time Temp Pulse Resp B/P (MAP) Pulse Ox O2 Delivery O2 Flow Rate FiO2 04/10/18 11:14 87 16 75/43 (54) 128/59 (82) 04/10/18 10:03 Room Air 04/10/18 07:43 36.9 16 158/72 (100) 94 Room Air 04/10/18 00:00 Room Air 04/09/18 22:59 36.9 88 16 124/78 (93) 92 Room Air 04/09/18 20:45 94 118/78 (91) 04/09/18 15:30 36.5 94 16 110/66 (81) 93 Room Air 04/09/18 15:20 Room Air Physical Exam General Appearance: WD/WN, no apparent distress Eyes: normal inspection, sclerae normal ENT: hearing grossly normal Neck: trachea midline Respiratory/Chest: lungs clear, normal breath sounds, no respiratory distress, no accessory muscle use Cardiovascular: regular rate, rhythm, no edema, no murmur Abdomen: normal bowel sounds, non tender, soft Extremities: non-tender, normal inspection, no pedal edema, no calf tenderness Neurologic/Psychiatric: alert, normal mood/affect, oriented x 3 Skin: normal color, warm/dry, no rash Laboratory Results Last 24 Hours Test 04/10/18 06:04 White Blood Count 14.88 K/uL Red Blood Count 3.24 M/uL Hemoglobin 10.1 g/dL Hematocrit 30.5 % Mean Corpuscular Volume 94.1 fL Mean Corpuscular Hemoglobin 31.2 pg Mean Corpuscular Hemoglobin Concent 33.1 g/dl Platelet Count 231 K/uL Mean Platelet Volume 9.8 fL Neutrophils (%) (Auto) 75.4 % Lymphocytes (%) (Auto) 11.0 % Monocytes (%) (Auto) 12.0 % Eosinophils (%) (Auto) 1.1 % Basophils (%) (Auto) 0.1 % Neutrophils # (Auto) 11.20 K/uL Lymphocytes # (Auto) 1.64 K/uL Monocytes # (Auto) 1.79 K/uL Eosinophils # (Auto) 0.17 K/uL Basophils # (Auto) 0.02 K/uL RDW Standard Deviation 49.6 fL RDW Coefficient of Variation 14.3 % Immature Granulocyte % (Auto) 0.4 % Immature Granulocyte # (Auto) 0.06 K/uL Sodium Level 132 mmol/L Potassium Level 4.0 mmol/L Chloride Level 102 mmol/L Carbon Dioxide Level 23 mmol/L Anion Gap 7.0 mmol/L Blood Urea Nitrogen 19 mg/dl Creatinine 0.87 mg/dl Est Creatinine Clear Calc Drug Dose 45.0 ml/min Estimated GFR () 72.9 Estimated GFR (Non- 62.9 BUN/Creatinine Ratio 22.0 Random Glucose 131 mg/dl Calcium Level 7.8 mg/dl Magnesium Level 2.0 mg/dl Assessment and Plan This patient is an 78-year-old female here with 1. massive T12-L1 herniated disc - POD #5 - s/p lumbar decompression medial facetectomies T11-T12 and T12-L1 with facetectomy T12-L1 on the left, posterior spinal fusion T12-L1, placement posterior instrumentation T12-L1, and interbody fusion T12-L1 by Dr. Mays. Defer management to his team. -We will discontinue gabapentin for increased drowsiness as a side effect She takes elavil at home but it is inferior to gabapentin for neuropathic pain control. The Elavil has since been discontinued Continue PO pain meds, etc. but discontinued hydrocodone-it appears spine surgery discontinued her oxycodone due to increased lethargy as well -Acetaminophen only for pain at this point 2. mild acute kidney injury - resolved; resumed ARB. -Continue to follow BMP 3. HTN - BPs were significantly elevated and then improved with addition of short acting metoprolol tartrate in the evening of 75. I attempted to change her to long-acting Toprol-XL 150 mg this morning and she is now having significant hypotension with standing. -Change Toprol XL back to 100 mg in the morning for now -Hold HCTZ -Give small bolus of 250 mL's of normal saline -Check orthostatics every shift -Continue losartan 100 mg daily 4. CKD stage 3 -follow BMP, creatinine quite stable at 0.87 5. chronic pain syndrome/chronic opioid dependence-the previous hospitalist reviewed the [place] prescription database on-line and the patient received 180 tabs of norco 10's every 30 days as well as ativan 0.5mg TID. -Continue Ativan but decrease the dose to twice daily due to excessive drowsiness previously, continue pain control as above 6. chronic anxiety - ativan down to twice daily as above 7. DVT proph - SCDs. Chemical means contraindicated due to recent surgery of the back. 8. asthma - continue advair; no exacerbation at this time. 9. hypomagnesemia - resolved. 10. hyponatremia - mild, improved today 132, could be from mild dehydration from poor p.o. intake although has been on IV fluids with no improvement I/O's are inaccurate from yesterday showing that she has had over 6 L and of IV fluids-I have asked the nurse to correct this accordingly as she is only getting 80 ML's per hour of IV fluids and a few IV meds-this was not corrected so unclear if this is true but highly doubt it -Follow BMP in the morning -Hold HCTZ 11. ileus -with nausea and vomiting on 04/08-now resolved -Bowel regimen 12. encephalopathy - possibly metabolic (from hyponatremia), possibly toxic ( from phenergan etc). Resolved today -Have since stopped elavil, phenergan, vistaril, and reglan, diphenhydramine -Discontinue gabapentin, oxycodone, hydrocodone as above she takes ativan regularly at home - ok to continue this to prevent withdrawal but decrease dose to twice daily haldol 0.5mg at HS prn for severe delirium (give orally) 13. spinal headache - remains on bedrest per recommendations from Dr. Mays; the large T12-L1 herniation abutted the dura. Now seems much improved defer management to Dr. Mays Disposition-remain on surgical floor
[2018-04-10] MEDS: DOCUSATE SODIUM/SENNA 50/8.6MG TAB PO SCH (20:50)
[2018-04-11] MEDS: ACETAMINOPHEN 500 MG TAB PO PRN (00:50)
[2018-04-11] MEDS ORDERED: GABAPENTIN 300 MG CAP PO ONE (05:15)
--- NOTE | 2018-04-11 05:15 | Progress Note ---
Progress Note Date of Service Apr 11, 2018. Progress Note S: I was asked to see this patient at 430 am due to pain in her right leg. She says she has had pain in her right leg since her surgery. She says it is a sharp shooting pain on the top of her right thigh. It goes to her knee. According to the notes she had her gabapentin stopped yesterday which she was on tid. No urinary/bowel incontinence. No leg weakness. O: Stable No leg swelling, or redness. Pain to minimal palpation over the R anterior thigh. Pain to palpation over greater trochanter. Distal sensation intact, distal pulses intact. 5/5 power bilaterally. A: Neuropathic pain due to lumbar radiculopathy. P: Trial of 300mg of gabapentin once. Pain appears to be neuropathic in nature. Dayteam to decide pro's vs con's of continuing this as a regular medication if patient gets benefit. - Jay Dang PGY2
[2018-04-11 05:40] VITALS: BP_SYST 139; BP_SYST 163; BP_SYST 178; BP_DIAS 108; BP_DIAS 81; BP_DIAS 93; PULSE 96; PULSE 97
[2018-04-11 06:40] LABS: BASO % 0.1 %; BASO ABS # 0.02 K/uL (0-0.2); EOS % 1.5 %; EOS ABS # 0.24 K/uL (0-0.5); HEMATOCRIT 23.3 % (37-47); HEMOGLOBIN 7.9 g/dL (12.0-16.0); IG# 0.13 K/uL (0.00-0.02); MEAN CELL VOLUME 93.2 fL (80-100); MEAN CORPUSCULAR HEMOGLOBIN 31.6 pg (25-34); MEAN CORPUSCULAR HGB CONC 33.9 g/dl (32-36); MEAN PLATELET VOLUME 9.3 fL (7.4-10.4); MONO % 17.1 %; MONO ABS # 2.73 K/uL (0.11-0.59); NEUT % 65.5 %; NEUT ABS # 10.45 K/uL (1.4-6.5); PLATELET COUNT 241 K/uL (130-400); RED CELL DISTRIBUTION WIDTH CV 14.1 % (11.5-14.5); RED CELL DISTRIBUTION WIDTH SD 48.3 fL (36.4-46.3); WHITE BLOOD COUNT 15.97 K/uL (4.8-10.8)
[2018-04-11 06:59] VITALS: BP_SYST 128; BP_SYST 150; BP_SYST 162; BP_DIAS 70; BP_DIAS 72; BP_DIAS 80; PULSE 92; TEMP 36.7; O2SAT 93
[2018-04-11 07:06] LABS: CALCIUM 8.6 mg/dl (8.5-10.1); CREATININE 0.8 mg/dl (0.60-1.20); POTASSIUM 3.5 mmol/L (3.5-5.1)
[2018-04-11 08:51] LABS: HEMATOCRIT 29.5 % (37-47); HEMOGLOBIN 9.9 g/dL (12.0-16.0); MEAN CELL VOLUME 92.5 fL (80-100); MEAN PLATELET VOLUME 9.1 fL (7.4-10.4); PLATELET COUNT 247 K/uL (130-400); RED CELL DISTRIBUTION WIDTH CV 13.9 % (11.5-14.5); RED CELL DISTRIBUTION WIDTH SD 47.3 fL (36.4-46.3); WHITE BLOOD COUNT 14.63 K/uL (4.8-10.8)
[2018-04-11] MEDS ORDERED: PANTOprazole INJ 40 MG in SYRINGE 0 ML IV SCH (09:00)
[2018-04-11 09:17] LABS: MEAN CORPUSCULAR HGB CONC 33.6 g/dl (32-36)
[2018-04-11] MEDS: RANITIDINE HCL 150 MG TAB PO SCH ×2 (09:21→20:47)
[2018-04-11] MEDS: METOPROLOL SUCC 50MG EXT REL TAB PO SCH (09:21)
[2018-04-11] MEDS: LOSARTAN POTASSIUM 50 MG TAB PO SCH (09:21)
[2018-04-11] MEDS: LORAZEPAM 0.5 MG TAB PO SCH ×2 (09:21→20:47)
[2018-04-11] MEDS: ATORVASTATIN 10 MG TAB PO SCH (09:22)
[2018-04-11] MEDS: FLUTICASONE/SALMETEROL 250/50 (ADVAIR) 14 PUFF/1 INHALER INH SCH ×2 (09:22→20:47)
[2018-04-11] MEDS: CEFTRIAXONE SOD INJ 1 GM in DEXTROSE 5% ADD-VANTAGE 50ML 50 ML IV SCH (14:25)
[2018-04-11 14:55] VITALS: BP 174/80; PULSE 98; TEMP 37; O2SAT 92
--- NOTE | 2018-04-11 15:55 | Progress Note ---
Progress Note Date of Service Apr 11, 2018. Progress Note Patient is tolerating sitting in a chair and walking around the room without difficulty. She denies nausea or vomiting or headaches. Leg symptoms are steadily improving. On exam she is good strength testing appears comfortable. Assessment status post thoracic decompression fusion. Plan at this time will initiate formalized physical therapy today depending on her progress consider discharge home soon as tomorrow.
[2018-04-11] MEDS ORDERED: GI COCKTAIL PO STA (17:37)
--- NOTE | 2018-04-11 17:37 | Hospitalist Progress Note ---
Hospitalist Progress Note Date of Service Apr 11, 2018. Subjective Pt evaluation today including: conversation w/ patient Pt feeling well today except c/o throat pain with swallowing. No fevers but RN noted urine to be dark and with foul odor. Pt ambulated today and did well, no headache. BPs not low. All Other Systems: Reviewed and Negative Objective Vital Signs Date Time Temp Pulse Resp B/P (MAP) Pulse Ox O2 Delivery O2 Flow Rate FiO2 04/11/18 14:55 37.0 98 20 174/80 (111) 92 Room Air 04/11/18 08:00 Room Air 04/11/18 06:59 36.7 92 18 162/80 (107) 93 Room Air 150/72 (98) 128/70 (89) 04/11/18 05:40 97 178/108 (131) 96 139/81 (100) 163/93 (116) 04/10/18 23:55 Room Air 04/10/18 23:04 37.1 04/10/18 23:00 37.6 97 16 156/68 (97) 95 Room Air 04/10/18 19:57 90 149/72 (97) 92 119/73 (88) 94 99/75 (83) Physical Exam General Appearance: WD/WN, no apparent distress Eyes: normal inspection, EOMI, sclerae normal ENT: hearing grossly normal, pharynx normal (no erythema) Neck: trachea midline Respiratory/Chest: lungs clear, normal breath sounds, no respiratory distress, no accessory muscle use Cardiovascular: regular rate, rhythm, no edema, no murmur Abdomen: normal bowel sounds, non tender, soft, no organomegaly Extremities: non-tender, normal inspection, no pedal edema, no calf tenderness Neurologic/Psychiatric: alert, normal mood/affect, oriented x 3 Skin: normal color, warm/dry, no rash Laboratory Results Last 24 Hours Test 04/11/18 06:17 04/11/18 08:30 04/11/18 11:45 White Blood Count 15.97 K/uL 14.63 K/uL Red Blood Count 2.50 M/uL 3.19 M/uL Hemoglobin 7.9 g/dL 9.9 g/dL Hematocrit 23.3 % 29.5 % Mean Corpuscular Volume 93.2 fL 92.5 fL Mean Corpuscular Hemoglobin 31.6 pg 31.0 pg Mean Corpuscular Hemoglobin Concent 33.9 g/dl 33.6 g/dl Platelet Count 241 K/uL 247 K/uL Mean Platelet Volume 9.3 fL 9.1 fL Neutrophils (%) (Auto) 65.5 % Lymphocytes (%) (Auto) 15.0 % Monocytes (%) (Auto) 17.1 % Eosinophils (%) (Auto) 1.5 % Basophils (%) (Auto) 0.1 % Neutrophils # (Auto) 10.45 K/uL Lymphocytes # (Auto) 2.40 K/uL Monocytes # (Auto) 2.73 K/uL Eosinophils # (Auto) 0.24 K/uL Basophils # (Auto) 0.02 K/uL RDW Standard Deviation 48.3 fL 47.3 fL RDW Coefficient of Variation 14.1 % 13.9 % Immature Granulocyte % (Auto) 0.8 % Immature Granulocyte # (Auto) 0.13 K/uL Red Blood Cell Morphology Unremarkable Sodium Level 133 mmol/L Potassium Level 3.5 mmol/L Chloride Level 100 mmol/L Carbon Dioxide Level 27 mmol/L Anion Gap 6.0 mmol/L Blood Urea Nitrogen 21 mg/dl Creatinine 0.80 mg/dl Est Creatinine Clear Calc Drug Dose 49.0 ml/min Estimated GFR () 80.7 Estimated GFR (Non- 69.6 BUN/Creatinine Ratio 26.7 Random Glucose 116 mg/dl Calcium Level 8.6 mg/dl Magnesium Level 2.2 mg/dl Urine Color YELLOW Urine Appearance CLOUDY Urine pH 7.0 Urine Specific [place] 1.014 Urine Protein 2+ Urine Glucose (UA) NEG Urine Ketones NEG Urine Occult Blood 3+ Urine Nitrite POS Urine Bilirubin NEG Urine Urobilinogen NEG Urine Leukocyte Esterase MODERATE Urine WBC (Auto) >30 /hpf Urine RBC (Auto) >30 /hpf Urine Hyaline Casts (Auto) 5-10 /lpf Urine Epithelial Cells (Auto) 5-10 /lpf Urine Bacteria (Auto) 4+ Assessment and Plan This patient is an 78-year-old female here with: Massive T12-L1 herniated disc - POD #6 - s/p lumbar decompression medial facetectomies T11-T12 and T12-L1 with facetectomy T12-L1 on the left, posterior spinal fusion T12-L1, placement posterior instrumentation T12-L1, and interbody fusion T12-L1 by Dr. Mays. Defer management to his team. She takes elavil at home but it is inferior to gabapentin for neuropathic pain control. The Elavil has since been discontinued. Gabapentin also dcd for excessive drowsiness Continue tylenol only for pain given intermittent confusion Possible stable for dc to home tomorrow as per [facility] Mild acute kidney injury - resolved; resumed ARB. -Continue to follow BMP HTN - BPs were significantly elevated and then improved with addition of short acting metoprolol tartrate in the evening of 75. I attempted to change her to long-acting Toprol-XL 150 mg once in the morning and she is developed significant hypotension with standing. Orthostatic hypotension is improving now , has resting HTN -continue Toprol XL 100 mg in the morning -Hold HCTZ for orthostasis for now but may restart tomorrow -Continue losartan 100 mg daily CKD stage 3 -follow BMP, creatinine quite stable at 0.80 Chronic pain syndrome/chronic opioid dependence-the previous hospitalist reviewed the [place] prescription database on-line and the patient received 180 tabs of norco 10's every 30 days as well as ativan 0.5mg TID. -Continue Ativan but decreased the dose to twice daily due to excessive drowsiness previously, continue pain control as above Chronic anxiety - ativan down to twice daily as above Asthma - continue advair; no exacerbation at this time. Hypomagnesemia - resolved. Hyponatremia - mild, improved again today to 133, could be from mild dehydration from previous poor p.o. intake although has been on IV fluids with no improvement. Could also be from HCTZ -Follow BMP in the morning -continue to hold HCTZ Ileus -with nausea and vomiting on 04/08-now resolved -Bowel regimen Acute encephalopathy - possibly metabolic (from hyponatremia), possibly toxic ( from phenergan etc). Resolved -Have since stopped elavil, phenergan, vistaril, and reglan, diphenhydramine -Discontinued gabapentin, oxycodone, hydrocodone as above -she takes ativan regularly at home - ok to continue this to prevent withdrawal but decrease dose to twice daily haldol 0.5mg at HS prn for severe delirium (give orally) Spinal headache -resolve, now off bedrest per recommendations from Dr. Mays; the large T12-L1 herniation abutted the dura. Now seems much improved defer management to Dr. Mays Anemia-lab error this AM showed hgb drop to 7.9 from 10.1. Repeat STAT showed Hgb actually 9.9. No evidence of bleeding at all since yesterday. -follow CBC DVT proph - SCDs. Chemical means contraindicated due to recent surgery of the back. Disposition-remain on surgical floor but with possible discharge tomorrow
[2018-04-11] MEDS ORDERED: ALUMINUM/MAGNESIUM SUSP 18 ML, LIDOCAINE HCL 2% VISCOUS SOLN 6 ML, BARCODE IDENTIFIER 1 EA PO ONE ×2 (18:00)
[2018-04-11 18:42] VITALS: BP_SYST 136; BP_SYST 145; BP_SYST 153; BP_DIAS 74; BP_DIAS 78; BP_DIAS 80; PULSE 106; PULSE 89; PULSE 98
[2018-04-11] MEDS: DOCUSATE SODIUM/SENNA 50/8.6MG TAB PO SCH (20:47)
[2018-04-11 22:50] VITALS: BP 156/85; PULSE 103; TEMP 36.8; O2SAT 94
[2018-04-12] VITALS (8 sets, daily range): BP systolic 103–176; BP diastolic 61–89; PULSE 90–104; TEMP 37–37.6; O2SAT 93–97
[2018-04-12 06:04] LABS: HEMATOCRIT 27.4 % (37-47); HEMOGLOBIN 9.1 g/dL (12.0-16.0); MEAN CELL VOLUME 92.6 fL (80-100); MEAN CORPUSCULAR HEMOGLOBIN 30.7 pg (25-34); MEAN CORPUSCULAR HGB CONC 33.2 g/dl (32-36); PLATELET COUNT 257 K/uL (130-400); RED CELL DISTRIBUTION WIDTH CV 13.9 % (11.5-14.5); WHITE BLOOD COUNT 15.13 K/uL (4.8-10.8)
[2018-04-12] MEDS: ACETAMINOPHEN 500 MG TAB PO PRN ×2 (06:28→21:33)
[2018-04-12 06:29] LABS: BASO % 0.2 %; BASO ABS # 0.03 K/uL (0-0.2); EOS % 1.3 %; IG# 0.24 K/uL (0.00-0.02); LYMPH % 13.2 %; LYMPH ABS # 1.99 K/uL (1.2-3.4); MONO % 20.4 %; MONO ABS # 3.09 K/uL (0.11-0.59); NEUT % 63.3 %; NEUT ABS # 9.58 K/uL (1.4-6.5)
[2018-04-12 06:40] LABS: CREATININE 0.89 mg/dl (0.60-1.20); POTASSIUM 3.7 mmol/L (3.5-5.1)
[2018-04-12] MEDS: RANITIDINE HCL 150 MG TAB PO SCH ×2 (09:11→21:23)
[2018-04-12] MEDS: FLUTICASONE/SALMETEROL 250/50 (ADVAIR) 14 PUFF/1 INHALER INH SCH ×2 (09:11→21:22)
[2018-04-12] MEDS: LORAZEPAM 0.5 MG TAB PO SCH ×2 (09:11→21:22)
[2018-04-12] MEDS: LOSARTAN POTASSIUM 50 MG TAB PO SCH (09:12)
[2018-04-12] MEDS: METOPROLOL SUCC 50MG EXT REL TAB PO SCH (09:12)
[2018-04-12] MEDS: ATORVASTATIN 10 MG TAB PO SCH (09:12)
[2018-04-12] MEDS ORDERED: GABAPENTIN 100 MG CAP PO ONE (09:28)
[2018-04-12] MEDS ORDERED: GI COCKTAIL PO PRN (09:30)
--- NOTE | 2018-04-12 10:24 | Progress Note ---
Progress Note Date of Service Apr 12, 2018. Progress Note Patient's back pain is controlled struggling with intermittent right leg pain. This pain does improve with activity. She denies any nausea vomiting or headaches. On exam she is in the chair at the bedside. She is good strength testing. The incision appears clean dry and intact without swelling. Assessment status post thoracic fusion per plan at this time she is struggling with UTI we may have to keep her 1 more day for appropriate antibiotic management. Hopefully she will be home the next day or so.
[2018-04-12] MEDS: ALUMINUM/MAGNESIUM SUSP 72 ML, LIDOCAINE HCL 2% VISCOUS SOLN 24 ML, BARCODE IDENTIFIER ... PO PRN ×2 (11:23)
--- NOTE | 2018-04-12 12:28 | Hospitalist Progress Note ---
Hospitalist Progress Note Date of Service Apr 12, 2018. Subjective Pt evaluation today including: conversation w/ patient, conversation w/ risk management consultant ([facility]) Patient feeling much better today. White blood cell count did trend upward a little bit. She did receive IV Dilaudid last night and again had this has been discontinued today. Her pain is improving. She does still have pain down the right buttock and thigh that is improved with standing up and walking and also with gabapentin. All Other Systems: Reviewed and Negative Objective Vital Signs Date Time Temp Pulse Resp B/P (MAP) Pulse Ox O2 Delivery O2 Flow Rate FiO2 04/12/18 11:55 37.0 97 15 176/74 (108) 97 Room Air 04/12/18 11:55 97 176/74 (108) 97 153/81 (105) 94 148/89 (108) 04/12/18 09:45 93 04/12/18 07:45 Room Air 04/12/18 07:45 37.3 90 14 168/78 (108) 93 Room Air 04/12/18 05:50 98 19 111/63 (79) 96 Room Air 04/12/18 05:49 100 18 133/80 (97) 95 Room Air 04/12/18 05:49 96 18 171/82 (111) 97 Room Air 04/11/18 23:06 Room Air 04/11/18 22:50 36.8 103 18 156/85 (108) 94 Room Air 04/11/18 18:42 98 153/80 (104) 106 145/74 (97) 89 136/78 (97) 04/11/18 16:10 Room Air 04/11/18 14:55 37.0 98 20 174/80 (111) 92 Room Air Physical Exam General Appearance: WD/WN, no apparent distress Eyes: normal inspection, sclerae normal ENT: hearing grossly normal Neck: trachea midline Respiratory/Chest: lungs clear, normal breath sounds, no respiratory distress, no accessory muscle use Cardiovascular: regular rate, rhythm, no edema, no murmur Abdomen: normal bowel sounds, non tender, soft, no organomegaly Extremities: normal inspection, no pedal edema, no calf tenderness Neurologic/Psychiatric: alert, normal mood/affect, oriented x 3 Skin: normal color, warm/dry, no rash Laboratory Results Last 24 Hours Test 04/12/18 05:47 White Blood Count 15.13 K/uL Red Blood Count 2.96 M/uL Hemoglobin 9.1 g/dL Hematocrit 27.4 % Mean Corpuscular Volume 92.6 fL Mean Corpuscular Hemoglobin 30.7 pg Mean Corpuscular Hemoglobin Concent 33.2 g/dl Platelet Count 257 K/uL Mean Platelet Volume 9.0 fL Neutrophils (%) (Auto) 63.3 % Lymphocytes (%) (Auto) 13.2 % Monocytes (%) (Auto) 20.4 % Eosinophils (%) (Auto) 1.3 % Basophils (%) (Auto) 0.2 % Neutrophils # (Auto) 9.58 K/uL Lymphocytes # (Auto) 1.99 K/uL Monocytes # (Auto) 3.09 K/uL Eosinophils # (Auto) 0.20 K/uL Basophils # (Auto) 0.03 K/uL RDW Standard Deviation 47.0 fL RDW Coefficient of Variation 13.9 % Immature Granulocyte % (Auto) 1.6 % Immature Granulocyte # (Auto) 0.24 K/uL Sodium Level 133 mmol/L Potassium Level 3.7 mmol/L Chloride Level 97 mmol/L Carbon Dioxide Level 28 mmol/L Anion Gap 8.0 mmol/L Blood Urea Nitrogen 18 mg/dl Creatinine 0.89 mg/dl Est Creatinine Clear Calc Drug Dose 44.0 ml/min Estimated GFR () 70.9 Estimated GFR (Non- 61.2 BUN/Creatinine Ratio 19.9 Random Glucose 114 mg/dl Calcium Level 9.0 mg/dl Magnesium Level 2.0 mg/dl Assessment and Plan This patient is an 78-year-old female here with: Massive T12-L1 herniated disc - POD #7 - s/p lumbar decompression medial facetectomies T11-T12 and T12-L1 with facetectomy T12-L1 on the left, posterior spinal fusion T12-L1, placement posterior instrumentation T12-L1, and interbody fusion T12-L1 by Dr. Mays. Defer management to his team. She takes elavil at home but it is inferior to gabapentin for neuropathic pain control. The Elavil has since been discontinued. Gabapentin also dcd for excessive drowsiness, but will restart today at a lower dose for some mild radicular pain postoperatively Continue tylenol only for pain given intermittent confusion She is stable for dc to home today as per [facility], however I will keep her for UTI as below UTI-developed in the postoperative period, perhaps from Hernandez associated UTI. With leukocytosis and low-grade fevers. Now growing 2 gram-negative rods in her urine -Continue Rocephin IV once daily and await urine culture results -Follow CBC in the morning Mild acute kidney injury - resolved; resumed ARB. -Continue to follow BMP HTN - BPs were significantly elevated and then improved with addition of short acting metoprolol tartrate in the evening of 75. I attempted to change her to long-acting Toprol-XL 150 mg once in the morning and she is developed significant hypotension with standing. Orthostatic hypotension is still present but she is asymptomatic, has resting HTN which is improving -continue Toprol XL 100 mg in the morning -Continue to hold HCTZ for orthostasis for now -Continue losartan 100 mg daily CKD stage 3 -follow BMP, creatinine quite stable at 0.89 Chronic pain syndrome/chronic opioid dependence-the previous hospitalist reviewed the [place] prescription database on-line and the patient received 180 tabs of norco 10's every 30 days as well as ativan 0.5mg TID. -Continue Ativan but decreased the dose to twice daily due to excessive drowsiness previously, continue pain control as above -Would not restart hydrocodone on discharge Chronic anxiety - ativan down to twice daily as above Asthma - continue advair; no exacerbation at this time. Hypomagnesemia - resolved. Hyponatremia - mild, improved and stable today at 133, could be from mild dehydration from previous poor p.o. intake although has been on IV fluids with no improvement. Could also be from HCTZ -Follow BMP in the morning -continue to hold HCTZ Ileus -with nausea and vomiting on 04/08-now resolved and moving her bowels, tolerating p.o. -Bowel regimen Acute encephalopathy - possibly metabolic (from hyponatremia), possibly toxic ( from phenergan etc). Resolved except last night had an episode after receiving IV Dilaudid -Have since stopped elavil, phenergan, vistaril, and reglan, diphenhydramine -Discontinued gabapentin, oxycodone, hydrocodone as above -Discontinue IV Dilaudid -she takes ativan regularly at home - ok to continue this to prevent withdrawal but decrease dose to twice daily haldol 0.5mg at HS prn for severe delirium (give orally) -Okay to give gabapentin low-dose as above Spinal headache -resolved, now off bedrest per recommendations from Dr. Mays; the large T12-L1 herniation abutted the dura. Now seems much improved defer management to Dr. Mays Anemia-hemoglobin fairly stable at 9.1 -follow CBC DVT proph - SCDs. Chemical means contraindicated due to recent surgery of the back. Disposition-remain on surgical floor but with possible discharge tomorrow
[2018-04-12] MEDS: CEFTRIAXONE SOD INJ 1 GM in DEXTROSE 5% ADD-VANTAGE 50ML 50 ML IV SCH (14:17)
[2018-04-12] MEDS: DOCUSATE SODIUM/SENNA 50/8.6MG TAB PO SCH (21:23)
[2018-04-12] MEDS: GABAPENTIN 100 MG CAP PO SCH (21:24)
[2018-04-13 05:15] VITALS: BP_SYST 109; BP_SYST 118; BP_SYST 158; BP_DIAS 61; BP_DIAS 64; BP_DIAS 89; PULSE 100; PULSE 91; PULSE 98; O2SAT 95; O2SAT 96
[2018-04-13 06:10] LABS: BASO % 0.2 %; BASO ABS # 0.03 K/uL (0-0.2); EOS % 2.4 %; EOS ABS # 0.35 K/uL (0-0.5); HEMOGLOBIN 9.2 g/dL (12.0-16.0); IG# 0.47 K/uL (0.00-0.02); LYMPH % 16.2 %; LYMPH ABS # 2.39 K/uL (1.2-3.4); MEAN CELL VOLUME 92.1 fL (80-100); MEAN CORPUSCULAR HEMOGLOBIN 30.3 pg (25-34); MEAN CORPUSCULAR HGB CONC 32.9 g/dl (32-36); MEAN PLATELET VOLUME 9.1 fL (7.4-10.4); MONO % 18.2 %; MONO ABS # 2.69 K/uL (0.11-0.59); NEUT % 59.8 %; NEUT ABS # 8.85 K/uL (1.4-6.5); PLATELET COUNT 289 K/uL (130-400); RED CELL DISTRIBUTION WIDTH CV 13.9 % (11.5-14.5); RED CELL DISTRIBUTION WIDTH SD 47.1 fL (36.4-46.3); WHITE BLOOD COUNT 14.78 K/uL (4.8-10.8)
[2018-04-13 06:41] LABS: CREATININE 0.86 mg/dl (0.60-1.20); POTASSIUM 3.6 mmol/L (3.5-5.1)
[2018-04-13 08:02] VITALS: BP_SYST 134; BP_SYST 137; BP_SYST 142; BP_DIAS 73; BP_DIAS 76; BP_DIAS 84; PULSE 103; PULSE 108; PULSE 99; TEMP 37.2; O2SAT 96
[2018-04-13] MEDS: LORAZEPAM 0.5 MG TAB PO SCH (08:17)
[2018-04-13] MEDS: FLUTICASONE/SALMETEROL 250/50 (ADVAIR) 14 PUFF/1 INHALER INH SCH (08:17)
[2018-04-13] MEDS: ACETAMINOPHEN 500 MG TAB PO PRN (08:18)
[2018-04-13] MEDS: ATORVASTATIN 10 MG TAB PO SCH (08:19)
[2018-04-13] MEDS: RANITIDINE HCL 150 MG TAB PO SCH (08:19)
[2018-04-13] MEDS: ALUMINUM/MAGNESIUM SUSP 72 ML, LIDOCAINE HCL 2% VISCOUS SOLN 24 ML, BARCODE IDENTIFIER ... PO PRN ×4 (08:21→12:50)
[2018-04-13] MEDS: LOSARTAN POTASSIUM 50 MG TAB PO SCH (08:21)
[2018-04-13] MEDS: METOPROLOL SUCC 50MG EXT REL TAB PO SCH (08:22)
[2018-04-13] MEDS: GABAPENTIN 100 MG CAP PO SCH (08:22)
[2018-04-13 09:27] VITALS: O2SAT 96
[2018-04-13] MEDS ORDERED: CIPROFLOXACIN / D5W 400 MG in PREMIXED IN D5W 200 ML IV ONE (12:42)
[2018-04-13 13:00] VITALS: BP 137/73; PULSE 103; TEMP 37.2; O2SAT 96
[2018-04-13] MEDS ORDERED: LIDO2SOL19 PO (13:01)
[2018-04-13] MEDS ORDERED: ACET-24 PO (13:01)
[2018-04-13] MEDS ORDERED: LORA-741 PO (13:01)
[2018-04-13] MEDS ORDERED: NRN100 PO (13:01)
[2018-04-13] MEDS ORDERED: NYSS5 PO (13:01)
[2018-04-13] MEDS ORDERED: CIPR1TAB11 PO (13:01)
--- NOTE | 2018-04-13 13:05 | Discharge Instructions ---
Discharge Instructions Date of Service Apr 13, 2018. Admission Reason for Admission: Abnormal Mri,[facility] Discharge Discharge Diagnosis / Problem: T12-L1 herniated disc with repair, UTI Discharge Goals Goal(s): Improve disease control, Diagnostic testing, Therapeutic intervention Activity Recommendations Activity Limitations: per Instructions/Follow-up section (As per Dr. Mays's instructions) . Instructions / Follow-Up Instructions / Follow-Up You were also diagnosed with a urinary tract infection during her hospitalization. Please finish out the course of antibiotics with Cipro 250 mg by mouth twice daily. Your white blood cell count was still a little bit elevated at the time of discharge likely secondary to your urinary tract infection. Please have your PCP repeat your CBC in about 1 week Your HCTZ was stopped due to low sodium levels and low blood pressures. This may be restarted by your family doctor in the near future-please follow-up with your primary care physician within 1 week. Your amitriptyline was also stopped due to confusion at nighttime. Your pain will be treated with gabapentin 200 mg twice a day and acetaminophen thousand milligrams 3 times a day as needed. Current Hospital Diet Patient's current hospital diet: Regular Diet Discharge Diet Recommended Diet: Regular Diet Procedures Procedures Performed: 1. Lumbar decompression medial facetectomies T11-T12 T12-L1 with facetectomy T12-L1 on the left. 2 posterior spinal fusion T12-L1. #3 placement posterior instrumentation T12-L1. #4 interbody fusion T12-L1. #5 placed a peek cage 7 mm in height at T12-L1. #6 placement of local autograft in the posterior gutters per #7 placement InFUSE collagen sponge Bymaster graft the posterior lateral gutters and ostial amp in the interbody space. Pending Studies Studies pending at discharge: yes List of pending studies: Final urine culture results Laboratory Results Last 24 Hours Test 04/13/18 05:37 White Blood Count 14.78 K/uL Red Blood Count 3.04 M/uL Hemoglobin 9.2 g/dL Hematocrit 28.0 % Mean Corpuscular Volume 92.1 fL Mean Corpuscular Hemoglobin 30.3 pg Mean Corpuscular Hemoglobin Concent 32.9 g/dl Platelet Count 289 K/uL Mean Platelet Volume 9.1 fL Neutrophils (%) (Auto) 59.8 % Lymphocytes (%) (Auto) 16.2 % Monocytes (%) (Auto) 18.2 % Eosinophils (%) (Auto) 2.4 % Basophils (%) (Auto) 0.2 % Neutrophils # (Auto) 8.85 K/uL Lymphocytes # (Auto) 2.39 K/uL Monocytes # (Auto) 2.69 K/uL Eosinophils # (Auto) 0.35 K/uL Basophils # (Auto) 0.03 K/uL RDW Standard Deviation 47.1 fL RDW Coefficient of Variation 13.9 % Immature Granulocyte % (Auto) 3.2 % Immature Granulocyte # (Auto) 0.47 K/uL Sodium Level 135 mmol/L Potassium Level 3.6 mmol/L Chloride Level 99 mmol/L Carbon Dioxide Level 27 mmol/L Anion Gap 8.0 mmol/L Blood Urea Nitrogen 14 mg/dl Creatinine 0.86 mg/dl Est Creatinine Clear Calc Drug Dose 45.5 ml/min Estimated GFR () 73.9 Estimated GFR (Non- 63.8 BUN/Creatinine Ratio 16.1 Random Glucose 105 mg/dl Calcium Level 9.0 mg/dl Medical Emergencies . Who to Call and When: Medical Emergencies: If at any time you feel your situation is an emergency, please call 911 immediately. . Non-Emergent Contact Non-Emergency issues call your: Primary Care Provider Call Non-Emergent contact if: temperature is above 101, your pain is not controlled, your pain is worsening, your pain is unusual for you, your pain is concerning you, wound has increased drainage, wound has increased redness, wound has increased pain, you have any medication questions . . "Provider Documentation" section prepared by Almita Huggins. . Calendering Machine Operator Recommendations Calendering Machine Operator Recommendations: Patient's back pain is well controlled. Leg symptoms markedly improved. She denies any headaches nausea or vomiting. She was tolerating sitting up in bed yesterday without difficulty. On exam she is good strength testing appears comfortable. Assessment status post lumbar decompression fusion T12-L1. Plan at this time will continue bedrest may sit up to tolerance. I will assess her in the a.m. at that point hopefully allow her to begin transitions to the chair and ambulation.
[2018-04-13] MEDS ORDERED: CIPROFLOXACIN 250 MG TAB PO STA (13:08)
[2018-04-13] MEDS ORDERED: NYSTATIN SUSP 500,000 U/5 ML UDC PO STA (13:08)
--- NOTE | 2018-04-13 13:11 | Discharge Summary ---
Discharge Summary Date of Service Apr 13, 2018. Discharge Summary Admission Date: Apr 04, 2018 at 14:29 Discharge Date: Apr 11, 2018 Discharge Disposition: Home with services Principal Diagnosis: T12-L1 herniated disc status post repair, UTI Problems/Secondary Diagnoses: Hyponatremia Leukocytosis Orthostatic hypotension HTN Throat pain This patient is an 78-year-old female here with: Massive T12-L1 herniated disc - POD #7 - s/p lumbar decompression medial facetectomies T11-T12 and T12-L1 with facetectomy T12-L1 on the left, posterior spinal fusion T12-L1, placement posterior instrumentation T12-L1, and interbody fusion T12-L1 by Dr. Mays. Defer management to his team. She takes elavil at home but it is inferior to gabapentin for neuropathic pain control. The Elavil has since been discontinued. Gabapentin also dcd for excessive drowsiness, but will restart today at a lower dose for some mild radicular pain postoperatively Continue tylenol only for pain given intermittent confusion She is stable for dc to home today as per [facility], however I will keep her for UTI as below UTI-developed in the postoperative period, perhaps from Hernandez associated UTI. With leukocytosis and low-grade fevers. Now growing 2 gram-negative rods in her urine -Continue Rocephin IV once daily and await urine culture results -Follow CBC in the morning Mild acute kidney injury - resolved; resumed ARB. -Continue to follow BMP HTN - BPs were significantly elevated and then improved with addition of short acting metoprolol tartrate in the evening of 75. I attempted to change her to long-acting Toprol-XL 150 mg once in the morning and she is developed significant hypotension with standing. Orthostatic hypotension is still present but she is asymptomatic, has resting HTN which is improving -continue Toprol XL 100 mg in the morning -Continue to hold HCTZ for orthostasis for now -Continue losartan 100 mg daily CKD stage 3 -follow BMP, creatinine quite stable at 0.89 Chronic pain syndrome/chronic opioid dependence-the previous hospitalist reviewed the [place] prescription database on-line and the patient received 180 tabs of norco 10's every 30 days as well as ativan 0.5mg TID. -Continue Ativan but decreased the dose to twice daily due to excessive drowsiness previously, continue pain control as above -Would not restart hydrocodone on discharge Chronic anxiety - ativan down to twice daily as above Asthma - continue advair; no exacerbation at this time. Hypomagnesemia - resolved. Hyponatremia - mild, improved and stable today at 133, could be from mild dehydration from previous poor p.o. intake although has been on IV fluids with no improvement. Could also be from HCTZ -Follow BMP in the morning -continue to hold HCTZ Ileus -with nausea and vomiting on 04/08-now resolved and moving her bowels, tolerating p.o. -Bowel regimen Acute encephalopathy - possibly metabolic (from hyponatremia), possibly toxic ( from phenergan etc). Resolved except last night had an episode after receiving IV Dilaudid -Have since stopped elavil, phenergan, vistaril, and reglan, diphenhydramine -Discontinued gabapentin, oxycodone, hydrocodone as above -Discontinue IV Dilaudid -she takes ativan regularly at home - ok to continue this to prevent withdrawal but decrease dose to twice daily haldol 0.5mg at HS prn for severe delirium (give orally) -Okay to give gabapentin low-dose as above Spinal headache -resolved, now off bedrest per recommendations from Dr. Mays; the large T12-L1 herniation abutted the dura. Now seems much improved defer management to Dr. Mays Anemia-hemoglobin fairly stable at 9.1 -follow CBC DVT proph - SCDs. Chemical means contraindicated due to recent surgery of the back. Disposition-remain on surgical floor but with possible discharge tomorrow Immunizations: Have You Had Influenza Vaccine: Yes Influenza Vaccine Date: Jul 23, 2008 History of Tetanus Vaccine?: Yes Tetanus Immunization Date: May 23, 2005 History of Pneumococcal: Yes Pneumococcal Date: Sep 22, 2003 History of Hepatitis B Vaccine: No Procedures: 1. Lumbar decompression medial facetectomies T11-T12 T12-L1 with facetectomy T12-L1 on the left. 2 posterior spinal fusion T12-L1. #3 placement posterior instrumentation T12-L1. #4 interbody fusion T12-L1. #5 placed a peek cage 7 mm in height at T12-L1. #6 placement of local autograft in the posterior gutters per #7 placement InFUSE collagen sponge Bymaster graft the posterior lateral gutters and ostial amp in the interbody space. Lumbar spine CT MRI lumbar spine K[facility] Consultations: Orthopedic spine surgery Medication Reconciliation New Medications: Ciprofloxacin Tab (Cipro) 250 Mg Tab 250 MG PO BID, #13 TAB Lidocaine Hcl (Mouth-Throat) (Lidocaine Viscous) 2 % Nadia 5 ML PO TID PRN for throat pain for 6 Days, #100 ML Nystatin (Nystatin) 5 Ml Susp 5 ML PO QID for 14 Days, #280 ML swish and swallow Acetaminophen (Sb Non-Aspirin Extra Stre) 500 Mg Tab 1000 MG PO Q8H PRN for Pain score 1-3 for 30 Days OTC Gabapentin (Gabapentin) 100 Mg Cap 200 MG PO BID, #56 CAP Oxycodone HCl (Oxycodone HCl) 5 Mg Tab 5-10 MG PO Q4H PRN for Moderate - severe pain for 30 Days, #60 TAB Changed Medications: Lorazepam (Ativan) 0.5 Mg Tab 0.5 MG PO TID PRN for anxiety for 30 Days (Medication details modified) Continued Medications: Albuterol Hfa (Ventolin Hfa) 200 Puffs/49006 Mcg Aers 2 PUFFS INH Q4H PRN for SOB/Wheezing, #1 INHALER Atorvastatin (Lipitor) 10 Mg Tab 10 MG PO DAILY, TAB Fluticasone Prop/Salmeterol (Advair Diskus 250/50 60 Dose) 1 Ea Aerp 1 PUFF INH BID, INHALER Losartan Potassium (Cozaar) 100 Mg Tab 100 MG PO DAILY, TAB Metoprolol Succinate (Toprol Xl) 100 Mg Tab 100 MG PO DAILY, TAB Discontinued Medications: Amitriptyline HCl (Amitriptyline HCl) 10 Mg Tab 10 MG PO HS Hydrochlorothiazide (Hctz) 25 Mg Tab 25 MG PO DAILY, TAB Discharge Exam Patient doing very well. Pain is controlled. She has no urinary symptoms at all. Is afebrile. Leukocytosis persists but is improving. I spoke with the microbiology lab. The second organism growing in her urine is not completely identified yet, however on the sensitivities, it seems to be resistant to ceftriaxone but sensitive to ciprofloxacin. Patient is extremely anxious to leave the hospital. Her blood pressures are much improved. She denies leg weakness, chest pain, shortness of breath. She is tolerating p.o. She still has complaints of pain with swallowing that is completely relieved with viscous lidocaine with Maalox. Some of the pain does radiate down to the upper chest with swallowing but again is relieved with the GI cocktail. Review of Systems: Constitutional: No problem reported Eyes: No problem reported ENT: + sore throat Respiratory: No shortness of breath Cardiovascular: No chest pain Abdomen: No pain, No nausea, No vomiting, No diarrhea, No constipation Musculoskeletal: No problem reported Genitourinary - Female: No problem reported Neurologic: No problem reported Psychiatric: No problem reported Endocrine: No problem reported Hematologic / Lymphatic: No problem reported Integumentary: No problem reported Physical Exam: General Appearance: WD/WN, no apparent distress Eyes: normal inspection, EOMI, sclerae normal ENT: hearing grossly normal, pharynx normal (No erythema seen at all, airway is widely patent) Neck: supple, no adenopathy, no JVD, trachea midline Respiratory/Chest: lungs clear, normal breath sounds, no respiratory distress, no accessory muscle use Cardiovascular: regular rate, rhythm, no edema, no gallop, no murmur, normal peripheral pulses Abdomen / GI: normal bowel sounds, non tender, soft, no organomegaly Extremities: normal inspection, no calf tenderness, no pedal edema Neurologic/Psychiatric: no motor/sensory deficits, alert, normal mood/affect , oriented x 3 Skin: normal color, warm/dry, no rash Lymphatic: no adenopathy Hospital Course This patient is an 78-year-old female here with: Massive T12-L1 herniated disc - POD #7 - s/p lumbar decompression medial facetectomies T11-T12 and T12-L1 with facetectomy T12-L1 on the left, posterior spinal fusion T12-L1, placement posterior instrumentation T12-L1, and interbody fusion T12-L1 by Dr. Mays. Defer management to his team. She takes elavil at home but it is inferior to gabapentin for neuropathic pain control. The Elavil has since been discontinued. Gabapentin also dcd for excessive drowsiness, but will restart today at a lower dose for some mild radicular pain postoperatively Continue tylenol only for pain given intermittent confusion She is stable for dc to home today as per [facility], however I will keep her for UTI as below UTI-developed in the postoperative period, perhaps from Hernandez associated UTI. With leukocytosis and low-grade fevers. Now growing 2 gram-negative rods in her urine -Continue Rocephin IV once daily and await urine culture results -Follow CBC in the morning Mild acute kidney injury - resolved; resumed ARB. -Continue to follow BMP HTN - BPs were significantly elevated and then improved with addition of short acting metoprolol tartrate in the evening of 75. I attempted to change her to long-acting Toprol-XL 150 mg once in the morning and she is developed significant hypotension with standing. Orthostatic hypotension is still present but she is asymptomatic, has resting HTN which is improving -continue Toprol XL 100 mg in the morning -Continue to hold HCTZ for orthostasis for now -Continue losartan 100 mg daily CKD stage 3 -follow BMP, creatinine quite stable at 0.89 Chronic pain syndrome/chronic opioid dependence-the previous hospitalist reviewed the [place] prescription database on-line and the patient received 180 tabs of norco 10's every 30 days as well as ativan 0.5mg TID. -Continue Ativan but decreased the dose to twice daily due to excessive drowsiness previously, continue pain control as above -Would not restart hydrocodone on discharge Chronic anxiety - ativan down to twice daily as above Asthma - continue advair; no exacerbation at this time. Hypomagnesemia - resolved. Hyponatremia - mild, improved and stable today at 133, could be from mild dehydration from previous poor p.o. intake although has been on IV fluids with no improvement. Could also be from HCTZ -Follow BMP in the morning -continue to hold HCTZ Ileus -with nausea and vomiting on 04/08-now resolved and moving her bowels, tolerating p.o. -Bowel regimen Acute encephalopathy - possibly metabolic (from hyponatremia), possibly toxic ( from phenergan etc). Resolved except last night had an episode after receiving IV Dilaudid -Have since stopped elavil, phenergan, vistaril, and reglan, diphenhydramine -Discontinued gabapentin, oxycodone, hydrocodone as above -Discontinue IV Dilaudid -she takes ativan regularly at home - ok to continue this to prevent withdrawal but decrease dose to twice daily haldol 0.5mg at HS prn for severe delirium (give orally) -Okay to give gabapentin low-dose as above Spinal headache -resolved, now off bedrest per recommendations from Dr. Mays; the large T12-L1 herniation abutted the dura. Now seems much improved defer management to Dr. Mays Anemia-hemoglobin fairly stable at 9.1 -follow CBC DVT proph - SCDs. Chemical means contraindicated due to recent surgery of the back. Disposition-remain on surgical floor but with possible discharge tomorrow Total Time Spent: Greater than 30 minutes This includes examination of the patient, discharge planning, medication reconciliation, and communication with other providers. Discharge Instructions Please refer to the electronic Patient Visit Report (Discharge Instructions) for additional information. Follow-Up With PCP within 1 week With orthopedic spine surgeon within 2 weeks Additional Copies To [place] Mays D.O.; Atif Molina D.O.
[2018-04-14] MEDS ORDERED: CIPROFLOXACIN / D5W 400 MG in PREMIXED IN D5W 200 ML IV SCH
== END 2018-04-13 13:58 | disposition home health service (06) | DRG 453 ==
LOC: C.EDB 10:16 → C.MSW 14:29 → CANRESERV 15:21 → ENRESERV 15:21
PROVIDERS: ADMIT Family Medicine; ATTEND Family Medicine
PROC: 0RGA0AJ Fusion of Thoracolumbar Vertebral Joint with Interbody Fusion Device, Posterior Approach, Anterior Column, Open Approach (ICD-10-PCS; principal; 2018-04-05 10:00)
PROC: 00QT0ZZ Repair Spinal Meninges, Open Approach (ICD-10-PCS; principal; 2018-04-05 10:00)
PROC: 0RGA071 Fusion of Thoracolumbar Vertebral Joint with Autologous Tissue Substitute, Posterior Approach, Posterior Column, Open Approach (ICD-10-PCS; principal; 2018-04-05 10:00)
PROC: 0RTB0ZZ Resection of Thoracolumbar Vertebral Disc, Open Approach (ICD-10-PCS; principal; 2018-04-05 10:00)
DX: M48.05 Spinal stenosis, thoracolumbar region (principal); G93.41 Metabolic encephalopathy; G97.41 Accidental puncture or laceration of dura during a procedure; N17.9 Acute kidney failure, unspecified; E87.1 Hypo-osmolality and hyponatremia; K56.7 Ileus, unspecified; F11.20 Opioid dependence, uncomplicated; T83.511A Infection and inflammatory reaction due to indwelling urethral catheter, initial encounter; M51.25 Other intervertebral disc displacement, thoracolumbar region; T88.59XA Other complications of anesthesia, initial encounter; E78.5 Hyperlipidemia, unspecified; I12.9 Hypertensive chronic kidney disease with stage 1 through stage 4 chronic kidney disease, or unspecified chronic kidney disease; F41.9 Anxiety disorder, unspecified; N18.3 Chronic kidney disease, stage 3 (moderate); G89.29 Other chronic pain; E83.42 Hypomagnesemia; D64.9 Anemia, unspecified; Z79.899 Other long term (current) drug therapy; Y84.6 Urinary catheterization as the cause of abnormal reaction of the patient, or of later complication, without mention of misadventure at the time of the procedure; Y73.1 Therapeutic (nonsurgical) and rehabilitative gastroenterology and urology devices associated with adverse incidents; Z88.0 Allergy status to penicillin; Z88.2 Allergy status to sulfonamides; Z88.5 Allergy status to narcotic agent